=== PATIENT | male | born 1980 | race Caucasian/White ===

== ENCOUNTER 2017-05-10 17:22 | Inpatient (IN) ==
[2017-05-10] MEDS ORDERED: *HR* OxyCODONE/APAP 5/325 TABLET PO ONE (18:21)
--- NOTE | 2017-05-10 18:23 | Emergency Department Note ---
Disposition Clinical Impression: Thrombocytopenia, Anemia, Petechial hemorrhage, Lower extremity edema Disposition: Admitted As Inpatient Referrals: Ru Ye MD [Primary Care Provider] - Forms: ED Satisfaction Letter General Adult HPI - General Chief complaint: ED Extremity Problem,Nontraumatic Stated complaint: leg swelling Time Seen by Provider: 05/10/17 17:37 Source: patient Limitations: no limitations - History of Present Illness HPI Narrative: 37-year-old male reports emergency department with a two-week history of lower extremity swelling, worse on the right. He went to his primary care physician who recommended he come to the ED for an ultrasound. He describes right lower extremity swelling which is worse than the left. There is no history of trauma or fever he is not known to be diabetic. The patient has had leg and foot surgery in the past area he is not anticoagulated. There is no history of heart failure liver failure kidney failure severe anemia. There is no history of fever or direct injury no coldness blueness numbness or weakness of the lower extremities. There is no history of chest pain or acute shortness of breath. The patient has some lower back pain hurts in general with movement. There is no history of acute bowel or bladder dysfunction or weakness or numbness in legs. He has no history of back surgery. Definitively no abdominal pain. No history of aneurysms or previous DVT PE or cancer. Pain Scale: 7 - Related Data Home Medications Medication Instructions Recorded Confirmed Carvedilol [Coreg] 6.25 mg PO BID 05/10/17 05/10/17 FLUoxetine HCl [PROzac] 20 mg PO DAILY 05/10/17 05/10/17 Allergies Allergy/AdvReac Type Severity Reaction Status Date / Time No Known Allergies Allergy Verified 01/16/17 12:06 All systems ED: reviewed and negative except as stated. Past Medical History - Past Medical History Medical history: Reports: hypertension Psychiatric history: Reports: bipolar, depression, prior suicide attempt, previous psychiatric hospitalization - Social History Smoking Status: Current every day smoker Smokeless Tobacco Status: No Alcohol use: Reports: heavy Drug use: Reports: cocaine Physical Exam - General Limitations: no limitations General appearance: alert, in no apparent distress - Head Head exam: atraumatic, normocephalic, normal inspection - Eye Eye exam: Present: normal appearance, PERRL, EOMI - ENT ENT exam: normal exam, normal oropharynx, mucous membranes moist, TM's normal bilaterally, normal external ear exam - Neck Neck exam: Present: normal inspection, full ROM, trachea midline - Chest Chest inspection: Present: symmetric chest wall rise. Absent: tenderness - Respiratory Respiratory exam: Present: normal lung sounds bilaterally. Absent: respiratory distress, wheezes - Cardiovascular Cardiovascular exam: Present: regular rate, normal rhythm, normal heart sounds - Abdominal Exam Abdominal exam: Present: soft, Non-Tender, normal bowel sounds. Absent: tenderness, distention, guarding, rebound, rigidity, Gimenez's sign, Rovsing's sign, tenderness at McBurney's Point, pulsatile mass - Extremities Exam Extremities exam: Present: normal capillary refill, calf tenderness, other ( Upper extremities warm and well-perfused 2 with no evidence of trauma. Lower extremities show edema, much worse on the right, chronic surgical or traumatic scarring left lower extremity and right lower extremity. No evidence of acute injury. Petechial hemorrhages bilateral lower extremities, right leg is somewhat more edematous than the left. No crepitance or bruising or weeping or scaling lesions no blistering or blackening of the skin on either leg. All 4 extremities are warm and well perfused without cyanosis or evidence of acute injury.) - Expanded Lower Extremity Exam Neurovascular/Tendon exam: Present: normal capillary refill. Absent: motor deficit, sensory deficit, tendon deficit, extremity cold to touch, pallor - Back Exam Back exam: Present: normal inspection, full ROM, paraspinal tenderness. Absent : tenderness, CVA tenderness (R), CVA tenderness (L), vertebral tenderness, straight leg raise (R), straight leg raise (L) - Neurological Exam Neurological exam: Present: alert, oriented X3, CN II-XII intact. Absent: motor sensory deficit - Psychiatric Psychiatric exam: Present: normal affect, normal mood - Skin Skin exam: Present: warm, dry, intact, normal color, erythema (Chief hemorrhages noted throughout the bilateral lower extremities). Absent: rash, cyanosis, diaphoresis, pallor, mottled Course Vital Signs Temperature 98.9 F 05/10/17 17:28 Pulse Rate 103 05/10/17 17:28 Respiratory Rate 18 05/10/17 17:28 Blood Pressure 165/99 05/10/17 17:28 O2 Sat by Pulse Oximetry 95 05/10/17 17:28 Temperature 98.6 F 05/10/17 20:03 Pulse Rate 86 05/10/17 20:03 Respiratory Rate 16 05/10/17 20:03 Blood Pressure 140/99 05/10/17 20:03 O2 Sat by Pulse Oximetry 0 05/10/17 20:03 Oxygen Delivery Oxygen Delivery Room Air Medical Decision Making - MDM Narrative Medical decision making narrative: Patient appears to have platelets less than 2000, critical level. He is currently stable, he does display petechial hemorrhages. He is somewhat anemic but does not describe bleeding. The patient has a history of alcohol abuse which may be contributory. Based on his markedly depressed platelet level, edema, and notable petechial hemorrhages, I thought it would be appropriate to admit the patient to the hospital. I reviewed the case with the hospitalist on- call who has accepted the patient to their care. - Lab Data Lab results reviewed: Yes I reviewed the patient's lab results. Result diagrams: 05/10/17 19:02 05/10/17 19:02 Lab Results 05/10/17 05/10/17 05/10/17 Range/Units 19:02 19:02 19:02 WBC 7.0 (4.3-11.1) K/mcL RBC 3.21 L (4.19-5.50) M/mcL Hgb 9.4 L (12.9-16.9) g/dL Hct 28.6 L (37.5-50.1) % MCV 89.1 (83.0-100.0) fL MCH 29.3 (28.0-33.3) pg MCHC 32.9 (31.6-35.5) g/dL RDW 14.4 (11.5-14.5) % Plt Count < 2 L* (140-400) K/mcL Immature Gran % 0.6 (0-4) % Seg Neutrophils % 68.7 % Lymphocytes % 20.1 % Monocytes % 7.0 % Eosinophils % 3.2 % Basophils % 0.4 % Neutrophils # 4.8 (1.6-8.9) K/mcL Lymphocytes # 1.4 (0.6-4.6) K/mcL Monocytes # 0.5 (0.0-1.3) K/mcL Eosinophils # 0.2 (0.0-0.6) K/mcL Basophils # 0.0 (0.0-0.2) K/mcL Nucleated RBCs/100 WBC 0.4 H (0) /100 WBC Immature Plt Fraction 8.8 H (1.1-6.1) % PT 10.6 (9.4-12.1) Seconds INR 1.0 D-Dimer 419 (0-500) ng/mLFEU Sodium 141 (136-145) mEq/L Potassium 3.8 (3.5-4.5) mEq/L Chloride 106 (98-109) mEq/L Carbon Dioxide 26 (19-29) mEq/L BUN 18 (8-26) mg/dL Creatinine 0.84 (0.72-1.25) mg/dL Est GFR ( Amer) > 60 (> 60) Est GFR (Non-Af Amer) > 60 (> 60) BUN/Creatinine Ratio 21 (6-26) Glucose 142 H (70-99) mg/dL Calculated Osmolality 296 (280-300) Lactic Acid (0.5-2.2) mmol/L Calcium 9.3 (8.6-10.8) mg/dL Total Bilirubin (0.2-1.2) mg/dL Direct Bilirubin (0.0-0.5) mg/dL Indirect Bilirubin (0.0-1.2) mg/dL AST (5-34) Units/L ALT (0-55) Units/L Alkaline Phosphatase (38-126) Units/L Creatine Kinase 180 (30-200) Units/L Troponin I (0-0.03) ng/mL C-Reactive Protein 6 H (Less than 5) mg/L B-Natriuretic Peptide (0-100) pg/mL Serum Total Protein (6.0-8.3) g/dL Albumin (3.5-5.0) g/dL Globulin (2.4-3.5) g/dL Albumin/Globulin Ratio (1.1-2.2) 05/10/17 05/10/17 05/10/17 Range/Units 19:02 19:02 19:02 WBC (4.3-11.1) K/mcL RBC (4.19-5.50) M/mcL Hgb (12.9-16.9) g/dL Hct (37.5-50.1) % MCV (83.0-100.0) fL MCH (28.0-33.3) pg MCHC (31.6-35.5) g/dL RDW (11.5-14.5) % Plt Count (140-400) K/mcL Immature Gran % (0-4) % Seg Neutrophils % % Lymphocytes % % Monocytes % % Eosinophils % % Basophils % % Neutrophils # (1.6-8.9) K/mcL Lymphocytes # (0.6-4.6) K/mcL Monocytes # (0.0-1.3) K/mcL Eosinophils # (0.0-0.6) K/mcL Basophils # (0.0-0.2) K/mcL Nucleated RBCs/100 WBC (0) /100 WBC Immature Plt Fraction (1.1-6.1) % PT (9.4-12.1) Seconds INR D-Dimer (0-500) ng/mLFEU Sodium (136-145) mEq/L Potassium (3.5-4.5) mEq/L Chloride (98-109) mEq/L Carbon Dioxide (19-29) mEq/L BUN (8-26) mg/dL Creatinine (0.72-1.25) mg/dL Est GFR ( Amer) (> 60) Est GFR (Non-Af Amer) (> 60) BUN/Creatinine Ratio (6-26) Glucose (70-99) mg/dL Calculated Osmolality (280-300) Lactic Acid 1.1 (0.5-2.2) mmol/L Calcium (8.6-10.8) mg/dL Total Bilirubin (0.2-1.2) mg/dL Direct Bilirubin (0.0-0.5) mg/dL Indirect Bilirubin (0.0-1.2) mg/dL AST (5-34) Units/L ALT (0-55) Units/L Alkaline Phosphatase (38-126) Units/L Creatine Kinase (30-200) Units/L Troponin I 0.01 (0-0.03) ng/mL C-Reactive Protein (Less than 5) mg/L B-Natriuretic Peptide 42 (0-100) pg/mL Serum Total Protein (6.0-8.3) g/dL Albumin (3.5-5.0) g/dL Globulin (2.4-3.5) g/dL Albumin/Globulin Ratio (1.1-2.2) // Range/Units 19:02 WBC (4.3-11.1) K/mcL RBC (4.19-5.50) M/mcL Hgb (12.9-16.9) g/dL Hct (37.5-50.1) % MCV (83.0-100.0) fL MCH (28.0-33.3) pg MCHC (31.6-35.5) g/dL RDW (11.5-14.5) % Plt Count (140-400) K/mcL Immature Gran % (0-4) % Seg Neutrophils % % Lymphocytes % % Monocytes % % Eosinophils % % Basophils % % Neutrophils # (1.6-8.9) K/mcL Lymphocytes # (0.6-4.6) K/mcL Monocytes # (0.0-1.3) K/mcL Eosinophils # (0.0-0.6) K/mcL Basophils # (0.0-0.2) K/mcL Nucleated RBCs/100 WBC (0) /100 WBC Immature Plt Fraction (1.1-6.1) % PT (9.4-12.1) Seconds INR D-Dimer (0-500) ng/mLFEU Sodium (136-145) mEq/L Potassium (3.5-4.5) mEq/L Chloride (98-109) mEq/L Carbon Dioxide (19-29) mEq/L BUN (8-26) mg/dL Creatinine (0.72-1.25) mg/dL Est GFR ( Amer) (> 60) Est GFR (Non-Af Amer) (> 60) BUN/Creatinine Ratio (6-26) Glucose (70-99) mg/dL Calculated Osmolality (280-300) Lactic Acid (0.5-2.2) mmol/L Calcium (8.6-10.8) mg/dL Total Bilirubin 0.8 (0.2-1.2) mg/dL Direct Bilirubin 0.3 (0.0-0.5) mg/dL Indirect Bilirubin 0.5 (0.0-1.2) mg/dL AST 18 (5-34) Units/L ALT 23 (0-55) Units/L Alkaline Phosphatase 102 (38-126) Units/L Creatine Kinase (30-200) Units/L Troponin I (0-0.03) ng/mL C-Reactive Protein (Less than 5) mg/L B-Natriuretic Peptide (0-100) pg/mL Serum Total Protein 6.7 (6.0-8.3) g/dL Albumin 3.5 (3.5-5.0) g/dL Globulin 3.2 (2.4-3.5) g/dL Albumin/Globulin Ratio 1.1 (1.1-2.2) - Radiology Data Radiology results reviewed: Yes I reviewed the patient's radiology results.
[2017-05-10 19:13] LABS: Basophils % 0.4 %
[2017-05-10 19:14] LABS: Eosinophils # 0.2 K/mcL (0.0-0.6); Eosinophils % 3.2 %; Hematocrit 28.6 % (37.5-50.1); Hemoglobin 9.4 g/dL (12.9-16.9); Immature Granulocytes % 0.6 % (0-4); Immature Platelets 8.8 % (1.1-6.1); Lymphocytes # 1.4 K/mcL (0.6-4.6); Lymphocytes % 20.1 %; Mean Corpuscular HGB Conc 32.9 g/dL (31.6-35.5); Mean Corpuscular Hemoglobin 29.3 pg (28.0-33.3); Mean Corpuscular Volume 89.1 fL (83.0-100.0); Monocytes # 0.5 K/mcL (0.0-1.3); Neutrophils # 4.8 K/mcL (1.6-8.9); Nucleated Red Blood Cells 0.4 /100 WBC (0); Red Blood Count 3.21 M/mcL (4.19-5.50); Red Cell Distribution Width 14.4 % (11.5-14.5); Segmented Neutrophils % 68.7 %
[2017-05-10 19:23] LABS: Prothrombin Time 10.6 Seconds (9.4-12.1)
[2017-05-10 19:26] LABS: Albumin 3.5 g/dL (3.5-5.0); Albumin/Globulin Ratio 1.1 (1.1-2.2); Bilirubin,Direct 0.3 mg/dL (0.0-0.5); Bilirubin,Indirect 0.5 mg/dL (0.0-1.2); Bilirubin,Total 0.8 mg/dL (0.2-1.2); Globulin 3.2 g/dL (2.4-3.5); Total Protein 6.7 g/dL (6.0-8.3)
[2017-05-10 19:27] LABS: BUN/Creatinine Ratio 21 (6-26); Blood Urea Nitrogen 18 mg/dL (8-26); Calcium 9.3 mg/dL (8.6-10.8); Carbon Dioxide 26 mEq/L (19-29); Chloride 106 mEq/L (98-109); Creatine Kinase 180 Units/L (30-200); Glucose 142 mg/dL (70-99); Osmolality,Calculated 296 (280-300); Potassium 3.8 mEq/L (3.5-4.5); Sodium 141 mEq/L (136-145); eGFR For African Americans > 60 (> 60); eGFR For Non-African Americans > 60 (> 60)
[2017-05-10 19:28] LABS: Platelet Count < 2 K/mcL (140-400)
[2017-05-10 19:56] LABS: C-Reactive Protein 6 mg/L (Less than 5)
[2017-05-10] MEDS ORDERED: Acetaminophen 325 MG TABLET PO PRN (21:41)
[2017-05-10] MEDS ORDERED: Ondansetron 4 MG/2 ML VIAL IVP PRN (21:41)
[2017-05-10] MEDS ORDERED: Naloxone 0.4 MG/ML INJ IVP PRN (21:41)
--- NOTE | 2017-05-10 22:09 | Internal Med History&Physical ---
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 Yao, he recommends to start Solu- Medrol. Platelet transfusion with 6 units single donor PLTs has been ordered, however patient is o negative and awaiting availability of O+ve or O neg blood He is at risk of spontaneous with a platelet count of 2000. Continue to monitor closely High risk patient due to acute finding and riusk of aretrial/venous thrombosis and bleed SCDs for DVT prophylaxis (2) Severe thrombocytopenia Current visit: Yes Status: Acute As above (3) Petechial hemorrhage Current visit: Yes Status: Acute As above (4) Anemia Current visit: Yes Status: Acute Acute HB 9.4, baseline was 16.4 in 12/2016 No current source of bleeding LFT is Normal Iron, Vit B12/Folate panel is normal LDH is normal No evidence of hemolysis in blood or urine Hematology evaluation has been requested Qualifiers: Anemia type: unspecified type Qualified Code(s): D64.9 - Anemia, unspecified (5) Hypertension Current visit: Yes Status: Chronic Controlled, continue home meds Qualifiers: Hypertension type: essential hypertension Qualified Code(s): I10 - Essential (primary) hypertension Internal Medicine - H&P: HPI Chief complaint: leg swelling, skin rash Admitted From: Home Plans for Post Hospital Care: Home History of present illness: Mr. Andre is a 37 year old male with PMH of cocaine abuse, hypertension and tobacco abuse. Patient with 2 weeks history of right lower extremity swelling, and red spots on his extremities He denies a history of abdominal pain, diarrhea, change in bowel habits, no neurologic symptoms, no headaches, he has no jaundice. He denies IV drug use, denies recent travel He did not have any childhood CA or malignancy HE was found in the ER with an incidental PLT count of 2,000 He reports his leg swelling on the R has been getting progressively worse and his LLE is also beginning to be swollen He denies chest pain, SOB, orthopnea, blurry vision. he has no fever or chills He denies any use of new drugs Physical exam in the ER reveals diffuse petechiae, lower extremities and trunk , no oral mucosa bleeding, . HB found to be 9, PLT count 2. Renal and liver function is normal LDH is normal hiv and Hep C screening sent is negative Peripheral smear is pending Abd CT shows Mild splenomegaly with extensive splenic remote healed granulomatous disease. There are scattered mediastinal and abdominal subcentimeter lymph nodes with no significant enlarged findings to suggest lymphadenopathy. A lymphoproliferative disorder cannot be excluded. Past Med Surg Social Fam HX - Past Medical History Medical history: hypertension Psychiatric history: bipolar, depression, prior suicide attempt, previous psychiatric hospitalization - Social History Smoking Status: Current every day smoker Smokeless Tobacco Status: No Alcohol use: heavy Drug use: cocaine - Family History Mother Family Member Ethnicity: Non- Living Status: Still Living Hx Family Cardiac Disorders: Yes (stents) Father Family Member Ethnicity: Non- Living Status: Still Living Hx Family Cardiac Disorders: Yes (stents placed) Internal Medicine - H&P: Meds Carvedilol [Coreg] 6.25 mg PO BID 05/10/17 [History] FLUoxetine HCl [PROzac] 20 mg PO DAILY 05/10/17 [History] 3 Allergy/AdvReac Type Severity Reaction Status Date / Time No Known Allergies Allergy Verified 01/16/17 12:06 All Systems PM: A 10-system review of systems was performed and is negative for pertinent findings except as documented above in the HPI. - Constitutional Constitutional: as per HPI - EENT Eyes: as per HPI Ears: as per HPI Nose, mouth and throat: as per HPI - Cardiovascular Cardiovascular ROS IM: as per HPI - Respiratory Respiratory: as per HPI - Gastrointestinal Gastrointestinal: as per HPI - Musculoskeletal Musculoskeletal ROS IM: as per HPI - Integumentary Integumentary IM: as per HPI - Neurological Neurological ROS: as per HPI - Hematologic/Lymphatic Hematologic/Lymphatic: as per HPI - Constitutional Vitals: Temp Pulse Resp BP Pulse Ox 98.6 F 81 16 133/88 99 05/10/17 20:03 05/10/17 22:07 05/10/17 22:07 05/10/17 22:07 05/10/17 22:07 VSS Gen: NAD HEENT: Moist oral mucosa, no cyanosis, no petechiae Neuro: Awake, alert, oriented X3, no speech deficits, no facial paralysis, no gross neurologic deficits Chest: No chest wall tenderness, chest is CTAB Heart: S1, S2 only, loud systolic murmur-MR. Abdomen: Soft, not tender, no distension Extremities: Well perfused, RLE swollen with calf tenderness. LLE also swollen. Chronic scarring from prior trauma noted, LE are well perfused. Pulses are present Skin: Petechiae. Internal Med - H&P Results - Labs CBC & Chem 7: 05/10/17 19:02 05/10/17 19:02
[2017-05-10 23:14] LABS: % Iron Saturation 21 % (20-55); Iron 71 mcg/dL (65-175); Transferrin 236 mg/dL (174-364)
[2017-05-10 23:37] LABS: Ferritin 255 ng/ml (22-275); HIV-1&2 Antibody & p24 Ag Nonreactive (Nonreactive); Hepatitis C Virus Antibody Nonreactive (Nonreactive)
[2017-05-10 23:49] LABS: Folate 7.5 ng/mL (7.0-31.4)
--- NOTE | 2017-05-11 00:14 | Event Note ---
Date of Encounter: 05/11/17 Time of Encounter: 00:13 Patient is O negative and blood bank has no O negative PLTS. Ensure transfusion of O negative Available blood is A positive, defer PLT transfusion till O blood is available
[2017-05-11] MEDS: MethylPREDNISolone 40 MG/ML VIAL IVP SCH ×3 (00:36→16:34)
[2017-05-11] MEDS: *HR* HYDROcodone/Acet 5/325 mg TABLET PO PRN ×3 (00:36→21:46)
[2017-05-11 06:00] LABS: Immature Granulocytes % 0.9 % (0-4); Lymphocytes % 10.7 %; Mean Corpuscular Volume 87.5 fL (83.0-100.0); Red Cell Distribution Width 14.2 % (11.5-14.5)
[2017-05-11 06:02] LABS: Basophils % 0.4 %; Eosinophils # 0.1 K/mcL (0.0-0.6); Eosinophils % 0.9 %; Hematocrit 28.8 % (37.5-50.1); Hemoglobin 9.7 g/dL (12.9-16.9); Immature Platelets 9.8 % (1.1-6.1); Lymphocytes # 0.7 K/mcL (0.6-4.6); Mean Corpuscular HGB Conc 33.7 g/dL (31.6-35.5); Mean Corpuscular Hemoglobin 29.5 pg (28.0-33.3); Monocytes # 0.2 K/mcL (0.0-1.3); Monocytes % 2.5 %; Neutrophils # 5.8 K/mcL (1.6-8.9); Nucleated Red Blood Cells 0.6 /100 WBC (0); Red Blood Count 3.29 M/mcL (4.19-5.50); Segmented Neutrophils % 84.6 %
[2017-05-11 06:11] LABS: Platelet Count < 2 K/mcL (140-400)
[2017-05-11 06:12] LABS: BUN/Creatinine Ratio 20 (6-26); Blood Urea Nitrogen 18 mg/dL (8-26); Carbon Dioxide 25 mEq/L (19-29); Chloride 105 mEq/L (98-109); Glucose 209 mg/dL (70-99); Osmolality,Calculated 294 (280-300); Sodium 138 mEq/L (136-145); eGFR For African Americans > 60 (> 60); eGFR For Non-African Americans > 60 (> 60)
[2017-05-11 06:42] LABS: Platelet Estimate Marked Decrease (Normal)
[2017-05-11] MEDS: FLUoxetine 20 MG CAPSULE PO SCH (08:06)
--- NOTE | 2017-05-11 10:40 | Internal Med Progress Note ---
Date of Encounter: 05/11/17 Time of Encounter: 10:36 - Assessment and plan (1) Severe thrombocytopenia Current Visit: Yes Status: Acute Assessment and plan: Patient noted to have acute onset of severe thrombocytopenia with platelet count less than 2000 with normal platelet count at the end of December 2016. No recent infections/drugs. Hematology on board. Continue platelet transfusion to maintain platelet counts about 20,000. 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 Continue IV steroids. Monitor closely for signs of bleeding. Avoid medical anticoagulation. Follow-up peripheral smear, hepatitis profile, platelet associated antibody, CA- 19-9. To follow up with hematology as outpatient. Also noted to have associated normocytic anemia; iron profile, serum vitamin B12 and folate levels, LDH noted to be within normal limits. Reticulocyte count mildly elevated. (2) Lower extremity edema Current Visit: Yes Status: Acute Assessment and plan: D-dimer within normal limits. Bilateral lower extremity venous Doppler ultrasound negative for DVT. Noted to have good palpable pulses in bilateral lower extremities. Edema likely related to thrombocytopenia and purpuric rash. (3) Tobacco abuse Current Visit: Yes Status: Chronic Assessment and plan: Continue nicotine transdermal patch. (4) Bipolar disorder Current Visit: Yes Status: Chronic Qualifiers: Active/Remission status: remission status unspecified Qualified Code(s): F31.9 - Bipolar disorder, unspecified - Subjective Interval history: Reports right leg pain and swelling; left leg swelling improving; denies fever/ chills, recent respiratory infections, new medications or drug use; has been an alcoholic in the past but quit since February 2017; - Constitutional Vitals: Temp Pulse Resp BP Pulse Ox 97.7 F 98 17 148/95 93 05/11/17 07:04 05/11/17 07:04 05/11/17 07:04 05/11/17 07:04 05/11/17 07:04 General appearance: Present: A&O X 3, obese, answers questions appropriately - Respiratory Respiratory exam: Present: CTAB. Absent: accessory muscle use, rales, rhonchi, wheezes - Cardiovascular Cardiovascular exam: Present: RRR, +S1, +S2. Absent: diastolic murmur, gallop, rubs, systolic murmur - GI/Abdominal GI/Abdominal exam: Present: normal bowel sounds, soft, no peritoneal signs. Absent: distended, tenderness - Extremities Exam Extremities exam: Present: full ROM, pedal edema (B/L edema and warmth, right> left), tenderness (significant tenderness to light palpation over right calf and leg), warm, radial pulses palpable and symmetrical. Absent: calf tenderness , cyanotic - Skin Skin exam: Present: dry, intact, petechiae (purpuric rash over B/L LE and UE) Internal Medicine: Result - Labs CBC & Chem 7: 05/13/17 03:16 05/11/17 05:31 Labs: Short CBC 05/11/17 Range/Units 05:31 WBC 6.8 (4.3-11.1) K/mcL Hgb 9.7 L (12.9-16.9) g/dL Hct 28.8 L (37.5-50.1) % Plt Count < 2 L* (140-400) K/mcL Neutrophils # 5.8 (1.6-8.9) K/mcL BMP 05/11/17 05:31 Sodium 138 Potassium 4.0 Chloride 105 Carbon Dioxide 25 BUN 18 Creatinine 0.89 Glucose 209 H Calcium 9.0 - ABG Interpretation ABG results: PT/INR, D-dimer PT 10.6 Seconds (9.4-12.1) 05/10/17 19:02 D-Dimer 419 ng/mLFEU (0-500) 05/10/17 19:02 - Impressions Impressions Abdomen CT 05/10/17 21:43 IMPRESSION: 1. Mild bilateral patchy lung base opacities which could represent scarring versus possible atelectasis or nonspecific infectious/inflammatory process. No lobar pneumonia. 2. Mild splenomegaly with extensive splenic remote healed granulomatous disease. There are scattered mediastinal and abdominal subcentimeter lymph nodes with no significant enlarged findings to suggest lymphadenopathy. A lymphoproliferative disorder cannot be excluded. 3. Subtle findings suggesting anemia correspond with laboratory values. 4. Indeterminate pancreatic head 2 cm hypodense focus. For an uncharacterized cystic mass between 2-3 cm in an asymptomatic patient yearly follow-up evaluation with CT abdomen could be obtained. White Paper: Managing Incidental Findings on Abdominal CT, SALLY, May 2011 D/ / 05/10/2017 23:17:48 Raheel Mcbride MD / [facility] Interpreting Provider: Raheel Mcbride MD Chest CT 05/10/17 21:44 IMPRESSION: 1. Mild bilateral patchy lung base opacities which could represent scarring versus possible atelectasis or nonspecific infectious/inflammatory process. No lobar pneumonia. 2. Mild splenomegaly with extensive splenic remote healed granulomatous disease. There are scattered mediastinal and abdominal subcentimeter lymph nodes with no significant enlarged findings to suggest lymphadenopathy. A lymphoproliferative disorder cannot be excluded. 3. Subtle findings suggesting anemia correspond with laboratory values. 4. Indeterminate pancreatic head 2 cm hypodense focus. For an uncharacterized cystic mass between 2-3 cm in an asymptomatic patient yearly follow-up evaluation with CT abdomen could be obtained. White Paper: Managing Incidental Findings on Abdominal CT, JACR, May 2011 D/ / 05/10/2017 23:17:48 [facility] Interpreting Provider: Raheel Mcbride MD Consult Discharge Plan - Plan Instructions: Hydrocodone/Acetaminophen (By mouth), How to Stop Smoking (DC), Thrombocytopenic Purpura (DC), Chronic Hypertension (DC), Thrombocytopenia (DC) Additional Instructions: F/up with [facility] in 1 week Referrals: Ru Ye MD [Primary Care Provider] - (Please call the office on Monday to schedule a follow up visit for within 1 week. ) Prescriptions: HYDROcodone/Acet 5/325 mg [[place] 5-325 mg] 1 tab PO Q6H PRN #20 tablet PRN Reason: Pain Omeprazole 20 mg PO DAILY #30 tablet. predniSONE [PredniSONE] 80 mg PO DAILY 5 Days tablet
[2017-05-11] MEDS ORDERED: 0.9 % Sodium Chloride 250 ML ONE (12:06)
--- NOTE | 2017-05-11 12:13 | Oncology Inp Consult Note ---
Date of Encounter: 05/11/17 Time of Encounter: 12:11 Assessment and Plan (1) Pancreatic mass Status: Acute Assessment and plan: This is incidental finding 1.2 x 2 cm dense mass head of pancreas ,could be a cystic lesion. Would proceed with a malaise lipase and CA-19-9. We continued surveillance for that (2) Thrombocytopenia Status: Acute Assessment and plan: Presented with acute thrombocytopenia. Also anemia. ITP high on the differential. Continue steroids. Trachea transfusion to keep the platelet count above 20,000 We will proceed with peripheral blood flow cytometry to rule out lymphoproliferative disorder. Cause of anemia and not completely clear. No clinical evidence of bleeding. If necessary proceed with bone marrow biopsy Check for platelet antibodies and Kelly test Right lower extremity mild erythema with 1+ edema. Venous Doppler negative for DVT. He has good peripheral pulses both lower extremities. - Data of Consult Requesting Physician: Leena Mejia MD Primary Care Provider: Ru Ye MD - Consult Narrative Reason for consult: Acute thrombocytopenia likely ITP History of present illness: Mr. Andre is a 37 year old male admitted with 2 week history of right lower extremity swelling. Workup in the emergency room showed low platelet count of 2000 and anemia hemoglobin 9.7 normocytic normochromic. His CBC was unremarkable in January 04 with normal hemoglobin around 14 and platelets around 200 ,000. His neutrophil counts remains normal He has a remote history of cocaine abuse Workup negative for hepatitis C and HIV on 05/10/2017. LDH normal No fever chills. Venous Doppler negative for DVT right lower extremity. Started on Solu-Medrol 40 mg IV every 8 hours He is O- and blood bank does not have O- platelets available. He does have petechial-type rash. On admission 05/10/2017 PT normal at 10.6 mL normal at 419. Less likely to have a clotting process going on Anemia workup negative with a normal ferritin at 55 and saturation normal at 21% B12 457 and folate 7.5 with normal T chest abdomen and pelvis without contrast 01/07/2017 showed spleen size craniocaudal 14.2 cm still below costal margin. Extensive granulomatous disease in the spleen Liver unremarkable Subcentimeter lymph nodes in the retroperitoneal and mediastinum which is nonspecific 1.2 x 2 x 1.2 S in the pancreatic head without any pancreatic inflammation Past medical history History of cocaine abuse 2 months ago History of alcohol abuse in the past and he was on Vivitrol Past Med Surg Social Fam HX - Past Medical History Medical history: hypertension Psychiatric history: bipolar, depression, prior suicide attempt, previous psychiatric hospitalization - Social History Smoking Status: Current every day smoker Smokeless Tobacco Status: No Alcohol use: heavy Drug use: cocaine - Family History Mother Family Member Ethnicity: Non- Living Status: Still Living Hx Family Cardiac Disorders: Yes (stents) Father Family Member Ethnicity: Non- Living Status: Still Living Hx Family Cardiac Disorders: Yes (stents placed) Medications and Allergies Carvedilol [Coreg] 6.25 mg PO BID 05/10/17 [History] FLUoxetine HCl [PROzac] 20 mg PO DAILY 05/10/17 [History] 3 Allergy/AdvReac Type Severity Reaction Status Date / Time No Known Allergies Allergy Verified 01/16/17 12:06 Review of systems: No fever chills. Clinically no evidence of sepsis. No clinical evidence of bleeding. No chest pain or shortness of breath Oncology - Exam - Constitutional Vitals: Temp Pulse Resp BP Pulse Ox 98.2 F 92 18 155/94 93 05/11/17 10:52 05/11/17 10:52 05/11/17 10:52 05/11/17 10:52 05/11/17 10:52 Exam: GENERAL: Alert and oriented, well appearing. Mental Status: Affect appropriate for circumstances HEENT: Sclerae anicteric. No mucositis or thrush. No other oral or pharyngeal lesions or erythema. Skin: No rashes or petechiae. No evidence of skin malignancy Lymph nodes: No cervical, supraclavicular, axillary, or inguinal adenopathy. Lungs: Air entry normal with normal breath sounds. No rhonchi or wheezing Cardiovascular: Regular rate and rhythm. No skipped beats Abdomen: Soft, nontender; no organomegaly or masses palpable. Extremities: Right lower extremity tenderness with mild erythema.. Left side trace edema. He has a scar in the mid phillips left leg with what looks like a sebaceous horn. He is very sensitive to touch on that spot Neurologic: Alert, cranial nerves II-XII intact; normal gait; no focal weakness or sensory abnormalities Oncology - Results Labs: Short CBC 05/11/17 Range/Units 05:31 WBC 6.8 (4.3-11.1) K/mcL Hgb 9.7 L (12.9-16.9) g/dL Hct 28.8 L (37.5-50.1) % Plt Count < 2 L* (140-400) K/mcL Neutrophils # 5.8 (1.6-8.9) K/mcL BMP 05/11/17 05:31 Sodium 138 Potassium 4.0 Chloride 105 Carbon Dioxide 25 BUN 18 Creatinine 0.89 Glucose 209 H Calcium 9.0 Consult Discharge Plan - Plan Referrals: [facility],Ru Weiss MD [Primary Care Provider] -
[2017-05-11 13:00] LABS: Immature Reticulocyte % 21.7 % (11.0-38.0); Retculocyte # 0.22 M/mcL (0.05-0.10); Reticulocyte % 6.7 % (1.6-2.8)
--- NOTE | 2017-05-11 13:10 | Oncology Inp Consult Note ---
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 No family history of significant cancer , blood clots, or hematologic disorders. Patient with several week onset of increased lower extremity swelling and petechiae of arms and legs. He had increasing fatigue. History of cocaine use, last dose 2 months ago. He takes 1800mg ibuprofen per day since foot surgery 2 years ago. He is on fluoxetine for depression. I explained the natural history and etiology of acute versus chronic ITP, and gave the patient and his mother at the bedside educational materials. He has no viral or bacterial illness in the last several months. Likely autoimmune in most cases, but cannot rule out other causes due to substance use history. Treatment for PLT <2 is immediate transfusion of platelets. He is O negative, and it is OK to give O positive donor platelets to patient. He will continue steroids, and Dr Chaves will assess today to see if IVIG infusion is needed for inpatient care. He will need to see Dr Chaves as outpatient at [facility]. Dr Chaves note to follow for any changes in treatment plan. We will follow along. - Data of Consult Patient: new to practice Consult date: 05/11/17 Requesting Physician: Leena Mejia MD Primary Care Provider: Ru Ye MD - Consult Narrative History of present illness: Mr. Andre is a 37 year old male Past Med Surg Social Fam HX - Past Medical History Medical history: hypertension Psychiatric history: bipolar, depression, prior suicide attempt, previous psychiatric hospitalization - Social History Smoking Status: Current every day smoker Smokeless Tobacco Status: No Alcohol use: heavy Drug use: cocaine - Family History Mother Family Member Ethnicity: Non- Living Status: Still Living Hx Family Cardiac Disorders: Yes (stents) Father Family Member Ethnicity: Non- Living Status: Still Living Hx Family Cardiac Disorders: Yes (stents placed) Medications and Allergies Carvedilol [Coreg] 6.25 mg PO BID 05/10/17 [History] FLUoxetine HCl [PROzac] 20 mg PO DAILY 05/10/17 [History] 3 Allergy/AdvReac Type Severity Reaction Status Date / Time No Known Allergies Allergy Verified 01/16/17 12:06 Constitutional: Present: fatigue, malaise Musculoskeletal: Present: joint swelling (lower legs) Hematologic/Lymphatic: Present: easy bruising, other (petechiae on legs and arms ) Oncology - Exam - Constitutional Vitals: Temp Pulse Resp BP Pulse Ox 98.0 F 105 18 143/89 95 05/11/17 13:02 05/11/17 13:02 05/11/17 13:02 05/11/17 13:02 05/11/17 13:02 General appearance: cooperative, no acute distress - Head Head exam: Present: atraumatic, normal inspection - Eye Eye exam: Present: normal appearance, PERRL Pupils: Present: normal accommodation - ENT ENT exam: Present: mucous membranes moist - Neck Neck exam: Present: full ROM, normal inspection - Respiratory Respiratory exam: Present: CTAB - Cardiovascular Cardiovascular exam: Present: RRR, +S1, +S2 - GI/Abdominal GI/Abdominal exam: Present: normal bowel sounds - Extremities Exam Extremities exam: Present: full ROM, joint swelling (ankles), pedal edema - Neurological Exam Neurological exam: Present: alert, CN II-XII intact, oriented X3, no focal deficits - Psychiatric Psychiatric exam: Present: normal affect, normal mood - Skin Skin exam: Present: petechiae (legs and arms) Oncology - Results Labs: Short CBC 05/11/17 Range/Units 05:31 WBC 6.8 (4.3-11.1) K/mcL Hgb 9.7 L (12.9-16.9) g/dL Hct 28.8 L (37.5-50.1) % Plt Count < 2 L* (140-400) K/mcL Neutrophils # 5.8 (1.6-8.9) K/mcL BMP 05/11/17 05:31 Sodium 138 Potassium 4.0 Chloride 105 Carbon Dioxide 25 BUN 18 Creatinine 0.89 Glucose 209 H Calcium 9.0 Consult Discharge Plan - Plan Referrals: Ru Ye MD [Primary Care Provider] -
[2017-05-11 13:36] LABS: Thyroid Stimulating Hormone 0.299 mcIU/mL (0.350-4.840)
[2017-05-11] MEDS: Nicotine 21 MG PATCH.TD24 TD SCH (16:32)
[2017-05-11 19:43] LABS: Basophils % 0.2 %; Immature Granulocytes % 1.1 % (0-4); Mean Corpuscular Volume 84.6 fL (83.0-100.0); Monocytes % 3.8 %; Red Blood Count 3.19 M/mcL (4.19-5.50)
[2017-05-11 19:44] LABS: Hemoglobin 9.4 g/dL (12.9-16.9); Immature Platelets 32.7 % (1.1-6.1); Lymphocytes # 0.7 K/mcL (0.6-4.6); Mean Corpuscular HGB Conc 34.8 g/dL (31.6-35.5); Mean Corpuscular Hemoglobin 29.5 pg (28.0-33.3); Monocytes # 0.5 K/mcL (0.0-1.3); Neutrophils # 11.6 K/mcL (1.6-8.9); Nucleated Red Blood Cells 0.4 /100 WBC (0); Segmented Neutrophils % 89.9 %
[2017-05-11 19:52] LABS: Platelet Count 11 K/mcL (140-400)
[2017-05-11 20:15] LABS: Platelet Estimate Marked Decrease (Normal)
[2017-05-12] MEDS: MethylPREDNISolone 40 MG/ML VIAL IVP SCH ×4 (00:07→23:53)
[2017-05-12] MEDS: *HR* HYDROcodone/Acet 5/325 mg TABLET PO PRN ×2 (03:37→23:10)
[2017-05-12 05:03] LABS: Basophils % 0.2 %; Eosinophils % 0.1 %; Hemoglobin 10.3 g/dL (12.9-16.9); Mean Corpuscular Hemoglobin 29.7 pg (28.0-33.3); Red Blood Count 3.47 M/mcL (4.19-5.50)
[2017-05-12 05:05] LABS: Hematocrit 30.5 % (37.5-50.1); Immature Granulocytes % 1.1 % (0-4); Immature Platelets 27.6 % (1.1-6.1); Lymphocytes # 0.9 K/mcL (0.6-4.6); Mean Corpuscular HGB Conc 33.8 g/dL (31.6-35.5); Mean Corpuscular Volume 87.9 fL (83.0-100.0); Mean Platelet Volume 14.1 fL (9.4-12.4); Monocytes # 0.3 K/mcL (0.0-1.3); Neutrophils # 9.7 K/mcL (1.6-8.9); Nucleated Red Blood Cells 0.3 /100 WBC (0); Red Cell Distribution Width 14.4 % (11.5-14.5); Segmented Neutrophils % 87.6 %
[2017-05-12 05:10] LABS: Platelet Count 24 K/mcL (140-400)
[2017-05-12] MEDS: FLUoxetine 20 MG CAPSULE PO SCH (08:16)
[2017-05-12] MEDS: Nicotine 21 MG PATCH.TD24 TD SCH (08:17)
--- NOTE | 2017-05-12 11:21 | Venous Imaging Report ---
LE Venous Duplex Patient Name:Keith Andre Order Number:[id number] Procedure Date:05/10/2017 Date:1980Age:37 yrs Gender:Male Location:[facility] ED Room #: ER09 Ortho Rn:Naty Stephenson RDCS, RVT Referring MD:David Cárdenas MD Reading MD:Mat Cox MD Primary Indications:Swelling of limb Secondary Indications: Risk Factors Yes/No Hx of DVT Yes Impressions: Bilateral lower extremity: normal superficial and deep exam. Recommendations: Preliminary given to Dr Cárdenas in ED. Findings Venous Duplex Results: Right: Venous imaging of the lower extremity reveals full patency and normal vessel compressibility of the right distal iliac, right common femoral, right superficial femoral, right popliteal, right posterior tibial, right peroneal, right great saphenous and right lesser saphenous. Doppler signals in the evaluated veins were normal. Left: Venous imaging of the lower extremity reveals full patency and normal vessel compressibility of the left distal iliac, left common femoral, left superficial femoral, left popliteal, left posterior tibial, left peroneal, left great saphenous and left lesser saphenous. Doppler signals in the evaluated veins were normal. Prior Study: No prior study available for comparison. Lower Extremity Venous Duplex Side Vein Compress Spontaneous Flow Augment Diameter (cm) Depth (cm) Right Distal Iliac Normal Yes Phasic Yes Right Common Femoral Normal Yes Phasic Yes Right Superficial Femoral Normal Yes Phasic Yes Right Popliteal Normal Yes Phasic Yes Right Posterior Tibial Normal Yes Phasic Yes Right Peroneal Normal Yes Phasic Yes Right Great Saphenous Normal Yes Phasic Yes Right Lesser Saphenous Normal Yes Phasic Yes Left Distal Iliac Normal Yes Phasic Yes Left Common Femoral Normal Yes Phasic Yes Left Superficial Femoral Normal Yes Phasic Yes Left Popliteal Normal Yes Phasic Yes Left Posterior Tibial Normal Yes Phasic Yes Left Peroneal Normal Yes Phasic Yes Left Great Saphenous Normal Yes Phasic Yes Left Lesser Saphenous Normal Yes Phasic Yes Updated by Mat Cox MD on 05/12/2017 11:16:35 AM electronically signed on 05/12/2017 11:16:47 AM with status of Final
--- NOTE | 2017-05-12 18:32 | Internal Med Progress Note ---
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 Continue IV steroids. Platelet count is responding to steroids and platelet transfusion, noted to be 24,000 today. Continue to monitor CBC closely. No evidence of bleeding. No evidence of infection, blood cultures remain negative. Hematology on board. Peripheral smear shows markedly decreased platelet count. Hepatitis C antibody and HIV screen negative. (2) Severe thrombocytopenia Status: Acute Assessment and plan: Plan as above. Currently improving. No signs of bleeding. (3) Lower extremity edema Status: Acute Assessment and plan: D-dimer within normal limits. Bilateral lower extremity venous Doppler ultrasound negative for DVT. Noted to have good palpable pulses in bilateral lower extremities. Edema likely related to thrombocytopenia and purpuric rash. (4) Tobacco abuse Status: Chronic Assessment and plan: Continue nicotine transdermal patch. (5) Bipolar disorder Status: Chronic Qualifiers: Active/Remission status: remission status unspecified Qualified Code(s): F31.9 - Bipolar disorder, unspecified - Subjective Interval history: Reports improving right leg pain and swelling. No fever, chills, cough, dyspnea or chest pain. Received platelets. - Constitutional Vitals: Temp Pulse Resp BP Pulse Ox 98.3 F 103 17 139/90 93 05/12/17 15:03 05/12/17 15:03 05/12/17 15:03 05/12/17 15:03 05/12/17 15:03 General appearance: Present: A&O X 3, obese, answers questions appropriately - Respiratory Respiratory exam: Present: CTAB. Absent: accessory muscle use, rales, rhonchi, wheezes - Cardiovascular Cardiovascular exam: Present: RRR, +S1, +S2. Absent: diastolic murmur, gallop, rubs, systolic murmur - Extremities Exam Extremities exam: Present: pedal edema, warm, radial pulses palpable and symmetrical. Absent: calf tenderness, cyanotic Internal Medicine: Result - Labs CBC & Chem 7: 05/13/17 03:16 05/11/17 05:31 Labs: Short CBC 05/11/17 05/12/17 Range/Units 19:29 04:20 WBC 12.9 H D 11.1 (4.3-11.1) K/mcL Hgb 9.4 L 10.3 L (12.9-16.9) g/dL Hct 27.0 L 30.5 L (37.5-50.1) % Plt Count 11 L* D 24 L* D (140-400) K/mcL Neutrophils # 11.6 H 9.7 H (1.6-8.9) K/mcL - ABG Interpretation ABG results: PT/INR, D-dimer PT 10.6 Seconds (9.4-12.1) 05/10/17 19:02 D-Dimer 419 ng/mLFEU (0-500) 05/10/17 19:02 - VTE Documentation of Mechanical Device: Intermittent pneumatic compression device Consult Discharge Plan - Plan Instructions: Hydrocodone/Acetaminophen (By mouth), How to Stop Smoking (DC), Thrombocytopenic Purpura (DC), Chronic Hypertension (DC), Thrombocytopenia (DC) Additional Instructions: F/up with [facility] in 1 week Referrals: Carol Chaves MD [Partnered Physician] - [facility] [place] [facility] [Primary Care Provider] - (Please call the office on Monday to schedule a follow up visit for within 1 week. ) Prescriptions: HYDROcodone/Acet 5/325 mg [[place] 5-325 mg] 1 tab PO Q6H PRN #20 tablet PRN Reason: Pain Omeprazole 20 mg PO DAILY #30 tablet. predniSONE [PredniSONE] 80 mg PO DAILY 5 Days tablet
--- NOTE | 2017-05-12 19:21 | Oncology Inp Progress Note ---
Date of Encounter: 05/15/17 Time of Encounter: 19:19 (1) Pancreatic mass Status: Acute Assessment and plan: This is incidental finding 1.2 x 2 cm dense mass head of pancreas ,could be a cystic lesion. Would proceed with a malaise lipase and CA-19-9. We continued surveillance for that (2) Thrombocytopenia Status: Acute Assessment and plan: Presented with acute thrombocytopenia. Also anemia. ITP high on the differential. Continue steroids. With platelet transfusion counts improved to 24,000 We will proceed with peripheral blood flow cytometry to rule out lymphoproliferative disorder. Cause of anemia and not completely clear. Hemoglobin slightly improved to 10.3 If necessary proceed with bone marrow biopsy Check for platelet antibodies . Kelly test negative. TSH mildly suppressed at 0.3 Right lower extremity mild erythema with 1+ edema. Venous Doppler negative for DVT. He has good peripheral pulses both lower extremities. Oncology: Subj Interval history: Clinically feeling better. No bleeding episodes - Constitutional Vitals: Vital Signs Temp Pulse Resp BP Pulse Ox 05/12/17 19:13 98.9 F 104 18 138/85 96 05/12/17 15:03 98.3 F 103 17 139/90 93 05/12/17 11:12 98.3 F 98 18 136/84 96 05/12/17 07:59 98.3 F 110 17 146/99 94 05/12/17 03:17 98.2 F 108 20 153/101 94 05/11/17 23:15 97.9 F 105 18 129/80 95 Intake and Output 05/12/17 05/12/17 05/12/17 07:59 15:59 23:59 Intake Total 720 / 720 Output Total 2099 / 2099 Balance -2100 / -2099 720 / 720 Intake: Oral 720 / 720 Output: Urine 2099 / 2099 Other: Meal Lunch Percent of Meal Consumed 100% Weight 115.666 kg Patient Weight 05/12/17 23:59 Weight 115.666 kg Exam: GENERAL: Alert and oriented, well appearing. Mental Status: Affect appropriate for circumstances HEENT: Sclerae anicteric. No mucositis or thrush. No other oral or pharyngeal lesions or erythema. Skin: No rashes or petechiae. No evidence of skin malignancy Lymph nodes: No cervical, supraclavicular, axillary, or inguinal adenopathy. Lungs: Air entry normal with normal breath sounds. No rhonchi or wheezing Cardiovascular: Regular rate and rhythm. No skipped beats Abdomen: Soft, nontender; no organomegaly or masses palpable. Extremities: Erythema and right lower extremity edema has improved. Peripheral pulses are good Mild petechial rash Neurologic: Alert, cranial nerves II-XII intact; normal gait; no focal weakness or sensory abnormalities Oncology: Obj Data - Labs CBC & Chem 7: 05/13/17 03:16 05/11/17 05:31 Labs: Laboratory Results - last 24 hr 05/11/17 05/12/17 19:29 04:20 WBC 12.9 H D 11.1 RBC 3.19 L 3.47 L Hgb 9.4 L 10.3 L Hct 27.0 L 30.5 L MCV 84.6 87.9 MCH 29.5 29.7 MCHC 34.8 33.8 RDW 14.0 14.4 Plt Count 11 L* D 24 L* D MPV TNP 14.1 H Immature Gran % 1.1 1.1 Seg Neutrophils % 89.9 87.6 Lymphocytes % 5.0 8.0 Monocytes % 3.8 3.0 Eosinophils % 0.0 0.1 Basophils % 0.2 0.2 Neutrophils # 11.6 H 9.7 H Lymphocytes # 0.7 0.9 Monocytes # 0.5 0.3 Eosinophils # 0.0 0.0 Basophils # 0.0 0.0 Nucleated RBCs/100 WBC 0.4 H 0.3 H Platelet Estimate Marked Decrease L Immature Plt Fraction 32.7 H 27.6 H - ABG Interpretation ABG results: PT/INR, D-dimer PT 10.6 Seconds (9.4-12.1) 05/10/17 19:02 D-Dimer 419 ng/mLFEU (0-500) 05/10/17 19:02 Consult Discharge Plan - Plan Instructions: Hydrocodone/Acetaminophen (By mouth), How to Stop Smoking (DC), Thrombocytopenic Purpura (DC), Chronic Hypertension (DC), Thrombocytopenia (DC) Additional Instructions: F/up with [facility] in 1 week Referrals: Carol Chaves MD [Partnered Physician] - [facility] [place],Ru Weiss MD [Primary Care Provider] - (Please call the office on Monday to schedule a follow up visit for within 1 week. ) Prescriptions: HYDROcodone/Acet 5/325 mg [[place] 5-325 mg] 1 tab PO Q6H PRN #20 tablet PRN Reason: Pain Omeprazole 20 mg PO DAILY #30 tablet. predniSONE [PredniSONE] 80 mg PO DAILY 5 Days tablet
[2017-05-13 03:55] LABS: Basophils % 0.1 %; Monocytes % 3.9 %
[2017-05-13 03:56] LABS: Eosinophils % 0.1 %; Hemoglobin 10.4 g/dL (12.9-16.9); Immature Granulocytes % 1.7 % (0-4); Immature Platelets 16.9 % (1.1-6.1); Lymphocytes % 7.6 %; Mean Corpuscular HGB Conc 33.5 g/dL (31.6-35.5); Mean Corpuscular Hemoglobin 29.4 pg (28.0-33.3); Mean Corpuscular Volume 87.6 fL (83.0-100.0); Mean Platelet Volume 12.6 fL (9.4-12.4); Monocytes # 0.5 K/mcL (0.0-1.3); Nucleated Red Blood Cells 0.2 /100 WBC (0); Red Blood Count 3.54 M/mcL (4.19-5.50); Red Cell Distribution Width 14.3 % (11.5-14.5); Segmented Neutrophils % 86.6 %
[2017-05-13 04:05] LABS: Neutrophils # 11.9 K/mcL (1.6-8.9); Platelet Count 74 K/mcL (140-400)
[2017-05-13] MEDS: Nicotine 21 MG PATCH.TD24 TD SCH (08:42)
[2017-05-13] MEDS: *HR* HYDROcodone/Acet 5/325 mg TABLET PO PRN (08:43)
[2017-05-13] MEDS: FLUoxetine 20 MG CAPSULE PO SCH (08:43)
[2017-05-13] MEDS: MethylPREDNISolone 40 MG/ML VIAL IVP SCH (08:52)
[2017-05-13 11:10] VITALS: BP 137/95
[2017-05-13 11:32] LABS: Cancer Antigen-GI (CA 19-9) 20 U/mL (0-37)
--- NOTE | 2017-05-13 14:20 | Discharge Summary ---
Date of Encounter: 05/13/17 Time of Encounter: 14:17 - Discharge Diagnosis (1) Acute ITP Priority: Primary Status: Suspected (2) Severe thrombocytopenia Priority: Primary Status: Acute (3) Lower extremity edema Priority: Primary Status: Acute (4) Tobacco abuse Priority: Secondary Status: Chronic (5) Bipolar disorder Priority: Secondary Status: Chronic Qualifiers: Active/Remission status: remission status unspecified Qualified Code(s): F31.9 - Bipolar disorder, unspecified - Discharge Medications Prescriptions: HYDROcodone/Acet 5/325 mg [[place] 5-325 mg] 1 tab PO Q6H PRN #20 tablet PRN Reason: Pain Omeprazole 20 mg PO DAILY #30 tablet. predniSONE [PredniSONE] 80 mg PO DAILY 5 Days tablet Home Medications: Carvedilol [Coreg] 6.25 mg PO BID 05/10/17 [History] FLUoxetine HCl [Prozac] 20 mg PO DAILY 05/10/17 [History] HYDROcodone/Acet 5/325 mg [[place] 5-325 mg] 1 tab PO Q6H PRN #20 tablet 05/13/17 [Rx] Omeprazole 20 mg PO DAILY #30 tablet. 05/13/17 [Rx] predniSONE [PredniSONE] 80 mg PO DAILY 5 Days tablet 05/13/17 [Rx] Allergies/Adverse Reactions: 3 Allergy/AdvReac Type Severity Reaction Status Date / Time No Known Allergies Allergy Verified 01/16/17 12:06 Procedures/tests Complete & Pending: Procedures Performed prior 72 hours Category Date Time Status CT abdomen wo no iv no oral [CT] Stat Cat Scan 05/10/17 21:[address] chest wo con [CT] Stat Cat Scan 05/10/17 21:44 Completed Date of admission: 05/10/17 21:41 Primary care physician: Ru Ye MD Consults: 05/10/17 21:49 Consult to Oncology [CONS] Routine Consulting Provider: [facility] Reason for Consult: Severe thrombocytopenia Call Completed: Yes Discharging clinician: Leena Mejia Anticipated date of discharge: 05/13/17 - Patient Status Disposition: Home, Self-Care Condition: Good Functional capacity at discharge: independent ambulation Overall status at discharge: patient is progressing back to baseline - Discharge Instructions Instructions: Hydrocodone/Acetaminophen (By mouth), How to Stop Smoking (DC), Thrombocytopenic Purpura (DC), Chronic Hypertension (DC), Thrombocytopenia (DC) Follow Up With: Carol Chaves MD [Partnered Physician] - [facility] [place],Ru Weiss MD [Primary Care Provider] - (Please call the office on Monday to schedule a follow up visit for within 1 week. ) Additional Instructions: F/up with [facility] in 1 week - Diet and Activity Activity: increase activity as tolerated Diet: low fat, low cholesterol, low salt diet Hospital course: Mr. Andre is a 37 year old male with history of tobacco abuse and hypertension and bipolar disorder, was admitted with right leg swelling and painful purpuric rash. Venous Doppler of right lower extremity revealed no DVT. He was noted to have strong peripheral pulses. Routine labs showed severe thrombocytopenia with platelet count less than 2000 with associated anemia. This is thought to be acute to subacute in onset as patient's previous labs from 4 months earlier when noted to be within normal limits. Serum iron profile, vitamin B12 and folate levels are within normal limits. Patient was started on IV steroids as suspicion for immune thrombocytopenic purpura is high at this time. He also received 1 unit of pooled platelets. Patient's platelet count steadily improved and it is noted to be 74,000 today. He also has mild leukocytosis, which is likely due to platelet transfusion. Patient was evaluated by hematology, who agreed with current management and recommended 5 days of oral steroids as an outpatient and to follow up with hematology as outpatient. Peripheral smear showed low platelets. Further labs are pending; Patient is medically stable for discharge. - Time Spent with Patient Total time spent providing and/or coordinating discharge services: Greater than 30 minutes (40 min) - Constitutional Vitals: Temp Pulse Resp BP Pulse Ox 98.3 F 86 17 137/95 94 05/13/17 11:09 05/13/17 11:09 05/13/17 11:09 05/13/17 11:09 05/13/17 11:09 General appearance: Present: A&O X 3, obese, answers questions appropriately - Extremities Exam Extremities exam: Present: pedal edema (improving right pedal edema; improved petechial rash), warm, radial pulses palpable and symmetrical. Absent: calf tenderness, cyanotic - VTE Documentation of Mechanical Device: Intermittent pneumatic compression device
--- NOTE | 2017-05-15 08:34 | Electrocardiograph Report ---
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
== END 2017-05-13 15:37 | disposition home or self-care (01) | DRG 661 ==
LOC: 3BNU 17:22 → EMEROO 17:22 → SUATTDRO 21:41 → 3BNU 22:15
PROVIDERS: ADMIT Internal Medicine; ATTEND Internal Medicine

== ENCOUNTER 2017-05-19 20:14 | Inpatient (IN) ==
--- NOTE | 2017-05-19 20:38 | Emergency Department Note ---
Disposition Clinical Impression: Thrombocytopenia, History of ITP Disposition: Admitted As Inpatient Condition: Fair Time of Disposition: 21:19 Recheck wound or abnormal lab - General Chief Complaint: ED Recheck/Abnormal Lab/Rx Stated Complaint: PCP sent for transfusion Time Seen by Provider: 05/19/17 20:22 Source: patient Mode of arrival: ambulatory Limitations: no limitations Nursing Notes Reviewed: Yes Vital Signs Reviewed: Yes - History of Present Illness HPI Narrative: 37-year-old male with history of ITP currently seeing hematology at [facility] arrives to [facility] emergency department with concern for low platelets. Lab tests performed were earlier today revealed a platelet count of less than 2. The patient was instructed to come into the emergency department that time. The patient does state that he has had this in the past and actually had a transfusion roughly 1 week ago for similar complaint. The patient states he at the time he did have a rash but he states the rash went away at this time. The patient does have a small lesion is inside of his mouth. Patient denies any other complaints at this time is resting comfortably. The patient is asymptomatic. The patient has documented a pulse in the 130s but in the room he was sitting and the low 90s. Patient resting comfortably at this time. Patient denies any bleeding at this time. No black or bloody stools, no hemoptysis, no bleeding gums. Pt Subjective Complaint: abnormal lab(s) Symptoms Since Prior Visit: no new symptoms Associated symptoms: none - Related Data Home Medications Medication Instructions Recorded Confirmed Carvedilol [Coreg] 6.25 mg PO BID 05/10/17 05/19/17 FLUoxetine HCl [Prozac] 20 mg PO DAILY 05/10/17 05/19/17 PredniSONE [Deltasone] See Taper PO AD 05/19/17 05/19/17 Previous Rx's Medication Instructions Recorded HYDROcodone/Acet 5/325 mg [[place] 1 tab PO Q6H PRN #20 tablet 05/13/17 5-325 mg] Omeprazole 20 mg PO DAILY #30 tablet. 05/13/17 Allergies Allergy/AdvReac Type Severity Reaction Status Date / Time No Known Allergies Allergy Verified 05/19/17 20:21 All systems ED: reviewed and negative except as stated. Constitutional: Denies: fever, chills, weakness, weight change Past Medical History - Past Medical History Attestation: Yes The following information was validated with the patient. Source: patient Medical history: Reports: hypertension, other (ITP) Psychiatric history: Reports: bipolar, depression, prior suicide attempt, previous psychiatric hospitalization - Social History Smoking Status: Current every day smoker Smokeless Tobacco Status: No Alcohol use: Reports: occasionally Drug use: Reports: cocaine Physical Exam - General Limitations: no limitations General appearance: alert, in no apparent distress Course - Consultations Consultation #1: Spoke with Dr. Elder in Hematology who requested one dose of 1 mg/kg IVIG as well as a 40 mg dose of dexamethasone. He requested CBCs every 8 hours. The patient will be seen by hematology this evening. He requested admission at this time. We will perform these orders and admit the patient to the hospitalist. Time: 20:57 Vital Signs Temperature 98.3 F 05/19/17 20:19 Pulse Rate 134 05/19/17 20:19 Respiratory Rate 16 05/19/17 20:19 Blood Pressure 171/111 05/19/17 20:19 O2 Sat by Pulse Oximetry 97 05/19/17 20:19 Temperature 98.6 F 05/19/17 22:32 Pulse Rate 86 05/19/17 22:32 Respiratory Rate 14 05/19/17 22:32 Blood Pressure 137/96 05/19/17 22:32 O2 Sat by Pulse Oximetry 96 05/19/17 22:32 Oxygen Delivery Oxygen Delivery Room Air Recheck wound or abnormal lab - MDM Narrative Medical decision making narrative: Patient has no symptoms of bleeding or any other complaints at this time. We will admit the patient to the hospitalist service per recommendation from hematology/oncology after receiving a bolus of 1 g/kg IVIG as was a 40 mg dose of dexamethasone. Oncology requested a CBC every 8 hours. The patient was accepted by the hospitalist, Dr. Saba. He agrees to plan. - Medical Records Medical records reviewed: Yes I reviewed the patient's medical records. - Lab Data Lab results reviewed: Yes I reviewed the patient's lab results. Result diagrams: 05/19/17 20:40 05/19/17 20:40 Lab Results 05/19/17 05/19/17 05/19/17 Range/Units 20:40 20:40 20:40 WBC 12.7 H (4.3-11.1) K/mcL RBC 4.13 L (4.19-5.50) M/mcL Hgb 12.2 L (12.9-16.9) g/dL Hct 37.1 L (37.5-50.1) % MCV 89.8 (83.0-100.0) fL MCH 29.5 (28.0-33.3) pg MCHC 32.9 (31.6-35.5) g/dL RDW 14.2 (11.5-14.5) % Plt Count < 2 L* (140-400) K/mcL MPV TNP Immature Gran % 0.6 (0-4) % Seg Neutrophils % 65.1 % Lymphocytes % 26.7 % Monocytes % 6.4 % Eosinophils % 1.0 % Basophils % 0.2 % Neutrophils # 8.3 (1.6-8.9) K/mcL Lymphocytes # 3.4 (0.6-4.6) K/mcL Monocytes # 0.8 (0.0-1.3) K/mcL Eosinophils # 0.1 (0.0-0.6) K/mcL Basophils # 0.0 (0.0-0.2) K/mcL Nucleated RBCs/100 WBC 0.2 H (0) /100 WBC Immature Plt Fraction 21.5 H (1.1-6.1) % Sodium 137 (136-145) mEq/L Potassium 3.6 (3.5-4.5) mEq/L Chloride 101 (98-109) mEq/L Carbon Dioxide 25 (19-29) mEq/L BUN 20 (8-26) mg/dL Creatinine 1.01 (0.72-1.25) mg/dL Est GFR ( Amer) > 60 (> 60) Est GFR (Non-Af Amer) > 60 (> 60) BUN/Creatinine Ratio 20 (6-26) Glucose 171 H (70-99) mg/dL Calculated Osmolality 291 (280-300) Calcium 8.9 (8.6-10.8) mg/dL Blood Type O NEGATIVE Antibody Screen NEGATIVE Attestation Statement - Attestation Attestation: I, Owen Flowers MD, personally evaluated this patient and discussed their management with the resident physician. I reviewed the resident's note and agree with the documented findings, medical decision making, and plan of care. 37-year-old male presents to the emergency department with complaint of low platelets. Patient was just admitted to the hospital 9 days ago for thrombocytopenia. Platelet count at that time was less than 2. No prior history. He presented with some swelling and petechiae at that time. He was seen today by hematology for follow-up and had labs obtained. Platelets again dropped down to less than 2. He was advised to come here to receive platelets and be admitted. He has no complaints at this time. No abnormal bruising or bleeding or swelling. On examination patient is a well-developed well-nourished male in no acute distress. He is alert and oriented 3. There is no cyanosis or diaphoresis. Breath sounds are clear and equal bilaterally. Heart regular rate and rhythm. Abdomen soft and nontender with normal bowel sounds. Skin is warm and dry with good color. Labs reviewed. Dr. Burch consulted the electrical maintenance worker manager of construction, Dr. Bran, and he recommended giving the patient IVIG 1 g/kg and Decadron 40 mg. The hospitalist , Dr. Saba, was consulted and accepted admission of the patient.
[2017-05-19] MEDS ORDERED: Dexamethasone 4 MG/ML VIAL IVP ONE (20:42)
[2017-05-19] MEDS ORDERED: IVIG (wt based) 5 GM/50 ML INFUS..BTL IVC ONE (20:43)
[2017-05-19] MEDS ORDERED: IMMUNE GLOBULIN IVC ONE ×6 (21:00→21:15)
[2017-05-19 21:28] LABS: Basophils % 0.2 %; Immature Granulocytes % 0.6 % (0-4); Monocytes % 6.4 %; Nucleated Red Blood Cells 0.2 /100 WBC (0)
[2017-05-19 21:29] LABS: Eosinophils # 0.1 K/mcL (0.0-0.6); Hematocrit 37.1 % (37.5-50.1); Hemoglobin 12.2 g/dL (12.9-16.9); Immature Platelets 21.5 % (1.1-6.1); Lymphocytes # 3.4 K/mcL (0.6-4.6); Lymphocytes % 26.7 %; Mean Corpuscular HGB Conc 32.9 g/dL (31.6-35.5); Mean Corpuscular Hemoglobin 29.5 pg (28.0-33.3); Mean Corpuscular Volume 89.8 fL (83.0-100.0); Monocytes # 0.8 K/mcL (0.0-1.3); Neutrophils # 8.3 K/mcL (1.6-8.9); Red Blood Count 4.13 M/mcL (4.19-5.50); Red Cell Distribution Width 14.2 % (11.5-14.5); Segmented Neutrophils % 65.1 %
[2017-05-19 21:34] LABS: BUN/Creatinine Ratio 20 (6-26); Blood Urea Nitrogen 20 mg/dL (8-26); Calcium 8.9 mg/dL (8.6-10.8); Carbon Dioxide 25 mEq/L (19-29); Chloride 101 mEq/L (98-109); Glucose 171 mg/dL (70-99); Osmolality,Calculated 291 (280-300); Platelet Count < 2 K/mcL (140-400); Potassium 3.6 mEq/L (3.5-4.5); Sodium 137 mEq/L (136-145); eGFR For African Americans > 60 (> 60); eGFR For Non-African Americans > 60 (> 60)
[2017-05-19] MEDS ORDERED: Ondansetron 4 MG/2 ML VIAL IVP PRN (22:50)
[2017-05-19] MEDS ORDERED: Acetaminophen 325 MG TABLET PO PRN (22:50)
[2017-05-19] MEDS ORDERED: Naloxone 0.4 MG/ML INJ IVP PRN (22:50)
--- NOTE | 2017-05-19 22:54 | Internal Med History&Physical ---
Date of Encounter: 05/19/17 Time of Encounter: 23:00 Assessment and Plan (1) Acute ITP Current visit: Yes Status: Acute Recently diagnosed ITP - with severe thrombocytopenia - probable lymphoproliferative disorder Continue IVIG, IV Dexamethasone given in ED, PO Dexamethasone daily Transfuse platelets if patient develops any bleeding Oncology consult - discussed with Dr. Bran Cardiac telemetry, repeat labs in a.m., monitor closely (2) Severe thrombocytopenia Current visit: No Status: Acute Secondary to ITP Plan as above (3) Pancreatic mass Current visit: No Status: Chronic Asymptomatic, follows up with oncology as outpatient (4) Bipolar disorder Current visit: No Status: Chronic Bipolar disorder with depression, stable Continue home dose of Prozac Qualifiers: Active/Remission status: remission status unspecified Qualified Code(s): F31.9 - Bipolar disorder, unspecified (5) Hypertension Current visit: No Status: Chronic Essential hypertension, controlled, monitor Continue home dose of Coreg Qualifiers: Hypertension type: essential hypertension Qualified Code(s): I10 - Essential (primary) hypertension (6) Tobacco abuse Current visit: No Status: Chronic Counseled about cessation, nicotine patch Internal Medicine - H&P: HPI Chief complaint: Low platelets Admitted From: Emergency Dept Plans for Post Hospital Care: Home History of present illness: Mr. Andre is a 37 year old male with past medical history of hypertension, bipolar disorder, depression and recently diagnosed ITP. Patient presents to the ED for low platelet count. Examined in the room. Patient is awake and alert. Not in any distress. Able to provide all history. No family members at bedside. Patient was evaluated earlier today by Dr. Chaves as outpatient. He had labs drawn, and his platelet count was found to be less than 2000. Patient has been on prednisone at home for ITP. He was also transfused platelets during his stay recently and his platelet count improved to 74,000. Patient denies any bleeding. Denies chest pain or shortness of breath. He has no symptoms at this time. Patient is also found to have a small pancreatic mass recently and workup was negative. Patient has no other complaints at this time. Initial workup in the ED today reveals severe Miguel [place]ngel cytopenia, but is otherwise negative. Oncology has evaluated the patient. He has received IVIG and also IV dexamethasone today. We will hold off on platelet transfusion for now. If patient develops any bleeding he will require platelet transfusion. Patient was explained about the serious risk of bleeding even with minimal trauma. Patient understood and agreed. CODE STATUS full code. Past Med Surg Social Fam HX - Past Medical History Medical history: hypertension, other (ITP) Psychiatric history: bipolar, depression, prior suicide attempt, previous psychiatric hospitalization - Past Surgical History Surgical History: other (Surgery were both feet, history of subdural hematoma evacuation 20 years ago) - Social History Smoking Status: Current every day smoker Packs per day: 1 Smokeless Tobacco Status: No Alcohol use: occasionally Drug use: cocaine - Family History Mother Family Member Ethnicity: Non- Living Status: Still Living Hx Family Cardiac Disorders: Yes (stents) Father Family Member Ethnicity: Non- Living Status: Still Living Hx Family Cardiac Disorders: Yes (stents placed) Internal Medicine - H&P: Meds Carvedilol [Coreg] 6.25 mg PO BID 05/10/17 [History] FLUoxetine HCl [Prozac] 20 mg PO DAILY 05/10/17 [History] HYDROcodone/Acet 5/325 mg [[place] 5-325 mg] 1 tab PO Q6H PRN #20 tablet 05/13/17 [Rx] Omeprazole 20 mg PO DAILY #30 tablet. 05/13/17 [Rx] PredniSONE [Deltasone] See Taper PO AD 05/19/17 [History] 3 Allergy/AdvReac Type Severity Reaction Status Date / Time No Known Allergies Allergy Verified 05/19/17 20:21 All Systems PM: A 10-system review of systems was performed and is negative for pertinent findings except as documented above in the HPI. - Constitutional Constitutional: no fatigue, no fever(s), no weakness - EENT Eyes: no blurry vision - Cardiovascular Cardiovascular ROS IM: no chest pain, no diaphoresis, no dyspnea, no dyspnea on exertion, no lightheadedness, no orthopnea, no syncope - Respiratory Respiratory: no cough, no dyspnea, no dyspnea on exertion, no wheezing, no chest congestion - Gastrointestinal Gastrointestinal: no abdominal pain, no belching, no bloating, no diarrhea, no hematemesis, no hematochezia, no nausea, no vomiting - Genitourinary Genitourinary ROS male: no dysuria - Neurological Neurological ROS: no abnormal gait, no confusion, no convulsions, no disequilibrium, no dizziness, no focal weakness, no loss of vision, no numbness , no tingling - Constitutional Vitals: Temp Pulse Resp BP Pulse Ox 98.6 F 86 14 137/96 96 05/19/17 22:32 05/19/17 22:32 05/19/17 22:32 05/19/17 22:32 05/19/17 22:32 General appearance: Present: cooperative, A&O X 3, pleasant, no acute distress, answers questions appropriately - Head Head exam: Present: atraumatic - Eye Eye exam: Present: EOMI - ENT ENT exam: Present: mucous membranes moist - Respiratory Respiratory exam: Present: CTAB. Absent: chest wall tenderness, rales, rhonchi , wheezes, tachypnea - Cardiovascular Cardiovascular exam: Present: RRR, +S1, +S2 - GI/Abdominal GI/Abdominal exam: Present: soft. Absent: distended, firm, guarding, tenderness - Extremities Exam Extremities exam: Present: radial pulses palpable and symmetrical. Absent: calf tenderness, cyanotic, pedal edema - Neurological Exam Neurological exam: Present: alert, oriented X3, no focal deficits. Absent: facial droop, speech deficit Internal Med - H&P Results - Labs CBC & Chem 7: 05/19/17 20:40 05/19/17 20:40
[2017-05-20] MEDS: Nicotine 21 MG PATCH.TD24 TD SCH ×2 (00:05→07:56)
[2017-05-20 03:54] LABS: Eosinophils % 0.3 %; Hemoglobin 11.1 g/dL (12.9-16.9); Lymphocytes % 11.1 %
[2017-05-20 03:56] LABS: Basophils % 0.3 %; Hematocrit 33.5 % (37.5-50.1); Immature Granulocytes % 1.7 % (0-4); Lymphocytes # 0.8 K/mcL (0.6-4.6); Mean Corpuscular HGB Conc 33.1 g/dL (31.6-35.5); Mean Corpuscular Hemoglobin 29.8 pg (28.0-33.3); Mean Corpuscular Volume 90.1 fL (83.0-100.0); Monocytes # 0.1 K/mcL (0.0-1.3); Monocytes % 1.9 %; Neutrophils # 5.8 K/mcL (1.6-8.9); Red Blood Count 3.72 M/mcL (4.19-5.50); Red Cell Distribution Width 13.8 % (11.5-14.5); Segmented Neutrophils % 84.7 %
[2017-05-20 04:00] LABS: INR 0.9; Platelet Count 5 K/mcL (140-400)
[2017-05-20 04:09] LABS: BUN/Creatinine Ratio 18 (6-26); Blood Urea Nitrogen 19 mg/dL (8-26); Calcium 8.4 mg/dL (8.6-10.8); Carbon Dioxide 27 mEq/L (19-29); Chloride 97 mEq/L (98-109); Glucose 375 mg/dL (70-99); Osmolality,Calculated 286 (280-300); Potassium 4.4 mEq/L (3.5-4.5); eGFR For African Americans > 60 (> 60); eGFR For Non-African Americans > 60 (> 60)
[2017-05-20 04:11] LABS: Sodium 129 mEq/L (136-145)
[2017-05-20 04:31] LABS: Thyroid Stimulating Hormone 0.301 mcIU/mL (0.350-4.840)
[2017-05-20] MEDS: Famotidine 20 MG/2 ML VIAL IVP SCH ×2 (05:29→16:47)
[2017-05-20] MEDS: FLUoxetine 20 MG CAPSULE PO SCH (07:55)
[2017-05-20] MEDS: *HR* HYDROcodone/Acet 5/325 mg TABLET PO PRN ×2 (07:55→20:58)
[2017-05-20] MEDS ORDERED: Dexamethasone 10 MG/ML VIAL PO SCH (09:00)
[2017-05-20 11:47] LABS: Basophils % 0.1 %; Hemoglobin 11.2 g/dL (12.9-16.9)
[2017-05-20 11:49] LABS: Hematocrit 32.2 % (37.5-50.1); Immature Platelets 23.7 % (1.1-6.1); Lymphocytes # 0.7 K/mcL (0.6-4.6); Lymphocytes % 6.3 %; Mean Corpuscular HGB Conc 34.8 g/dL (31.6-35.5); Mean Corpuscular Hemoglobin 30.2 pg (28.0-33.3); Mean Corpuscular Volume 86.8 fL (83.0-100.0); Mean Platelet Volume 13.9 fL (9.4-12.4); Monocytes # 0.1 K/mcL (0.0-1.3); Monocytes % 0.8 %; Neutrophils # 9.7 K/mcL (1.6-8.9); Nucleated Red Blood Cells 0.2 /100 WBC (0); Red Blood Count 3.71 M/mcL (4.19-5.50); Red Cell Distribution Width 13.5 % (11.5-14.5); Segmented Neutrophils % 91.8 %
[2017-05-20 11:51] LABS: Platelet Count 16 K/mcL (140-400)
--- NOTE | 2017-05-20 16:23 | Internal Med Progress Note ---
Date of Encounter: 05/20/17 Time of Encounter: 10:00 - Assessment and plan (1) Acute ITP Current Visit: Yes Status: Acute Assessment and plan: -Oncology was consulted in the ER with recommendations IVIG and IV dexamethasone. -IV Ig was given as a one-time dose but IV dexamethasone has been continued. -Patients platelets have improved but are still low; patient with no active bleeding. -Continue IV dexamethasone and appreciate any further recommendations from oncology. (2) Severe thrombocytopenia Current Visit: No Status: Acute Assessment and plan: -Secondary to the above. (3) Hypertension Current Visit: No Status: Chronic Assessment and plan: -Patient with elevated blood pressures without prior diagnosis of hypertension. -Continue to monitor. Qualifiers: Hypertension type: unspecified Qualified Code(s): I10 - Essential (primary ) hypertension (4) Mood disorder Current Visit: Yes Status: Acute Assessment and plan: -Stable; continue home medications. (5) Tobacco abuse Current Visit: No Status: Chronic Assessment and plan: -Nicotine replacement will be offered. - Subjective Interval history: Patient with no issues or complaints this morning and no acute events overnight. - Constitutional Vitals: Temp Pulse Resp BP Pulse Ox 98.4 F 105 14 170/97 96 05/20/17 14:55 05/20/17 14:55 05/20/17 14:55 05/20/17 14:55 05/20/17 14:55 General appearance: Present: cooperative, A&O X 3, pleasant, no acute distress, answers questions appropriately - Respiratory Respiratory exam: Present: CTAB. Absent: accessory muscle use, rales, rhonchi, wheezes - Cardiovascular Cardiovascular exam: Present: RRR, +S1, +S2. Absent: diastolic murmur, gallop, rubs, systolic murmur Internal Medicine: Result - Labs CBC & Chem 7: 05/20/17 11:38 05/20/17 03:30 Labs: Short CBC 05/20/17 05/20/17 Range/Units 03:30 11:38 WBC 6.9 10.6 D (4.3-11.1) K/mcL Hgb 11.1 L 11.2 L (12.9-16.9) g/dL Hct 33.5 L 32.2 L (37.5-50.1) % Plt Count 5 L* D 16 L* D (140-400) K/mcL Neutrophils # 5.8 9.7 H (1.6-8.9) K/mcL BMP 05/20/17 03:30 Sodium 129 L D Potassium 4.4 Chloride 97 L Carbon Dioxide 27 BUN 19 Creatinine 1.07 Glucose 375 H Calcium 8.4 L - ABG Interpretation ABG results: PT/INR, D-dimer PT 10.0 Seconds (9.4-12.1) 05/20/17 03:30 Consult Discharge Plan - Plan Referrals: Ru Ye MD [Primary Care Provider] -
[2017-05-20 20:01] LABS: Basophils % 0.1 %; Hematocrit 33.4 % (37.5-50.1); Hemoglobin 11.3 g/dL (12.9-16.9); Immature Granulocytes % 1.5 % (0-4); Immature Platelets 14.9 % (1.1-6.1); Lymphocytes # 0.7 K/mcL (0.6-4.6); Lymphocytes % 4.9 %; Mean Corpuscular HGB Conc 33.8 g/dL (31.6-35.5); Mean Corpuscular Hemoglobin 29.5 pg (28.0-33.3); Mean Corpuscular Volume 87.2 fL (83.0-100.0); Mean Platelet Volume 12.3 fL (9.4-12.4); Monocytes # 0.3 K/mcL (0.0-1.3); Monocytes % 1.9 %; Neutrophils # 12.3 K/mcL (1.6-8.9); Red Blood Count 3.83 M/mcL (4.19-5.50); Red Cell Distribution Width 13.5 % (11.5-14.5); Segmented Neutrophils % 91.6 %
[2017-05-20 20:11] LABS: Platelet Count 44 K/mcL (140-400)
[2017-05-21] MEDS: Famotidine 20 MG/2 ML VIAL IVP SCH (05:29)
[2017-05-21] MEDS: FLUoxetine 20 MG CAPSULE PO SCH (08:13)
[2017-05-21] MEDS: Nicotine 21 MG PATCH.TD24 TD SCH (08:13)
[2017-05-21] MEDS ORDERED: Dexamethasone 10 MG/ML VIAL IVP SCH (09:00)
[2017-05-21 09:40] LABS: Basophils % 0.1 %; Hematocrit 33.9 % (37.5-50.1); Hemoglobin 11.5 g/dL (12.9-16.9); Immature Granulocytes % 1.9 % (0-4); Immature Platelets 10.7 % (1.1-6.1); Lymphocytes # 0.8 K/mcL (0.6-4.6); Lymphocytes % 5.2 %; Mean Corpuscular HGB Conc 33.9 g/dL (31.6-35.5); Mean Corpuscular Volume 88.5 fL (83.0-100.0); Mean Platelet Volume 11.2 fL (9.4-12.4); Monocytes # 0.5 K/mcL (0.0-1.3); Neutrophils # 14.4 K/mcL (1.6-8.9); Nucleated Red Blood Cells 0.2 /100 WBC (0); Red Blood Count 3.83 M/mcL (4.19-5.50); Red Cell Distribution Width 13.9 % (11.5-14.5); Segmented Neutrophils % 89.8 %
[2017-05-21 09:42] LABS: Platelet Count 97 K/mcL (140-400)
[2017-05-21 09:53] LABS: BUN/Creatinine Ratio 16 (6-26); Blood Urea Nitrogen 17 mg/dL (8-26); Calcium 8.8 mg/dL (8.6-10.8); Carbon Dioxide 22 mEq/L (19-29); Chloride 99 mEq/L (98-109); Glucose 408 mg/dL (70-99); Osmolality,Calculated 291 (280-300); Potassium 4.6 mEq/L (3.5-4.5); Sodium 131 mEq/L (136-145); eGFR For African Americans > 60 (> 60); eGFR For Non-African Americans > 60 (> 60)
[2017-05-21 11:56] LABS: Hemoglobin A1C 6.2 %
[2017-05-21 16:21] VITALS: BP 165/101
--- NOTE | 2017-05-21 16:48 | Discharge Summary ---
Date of Encounter: 05/21/17 Time of Encounter: 11:00 - Discharge Diagnosis (1) Acute ITP Priority: Primary Status: Acute (2) Severe thrombocytopenia Priority: Primary Status: Acute (3) Hypertension Priority: Secondary Status: Chronic Qualifiers: Hypertension type: unspecified Qualified Code(s): I10 - Essential (primary ) hypertension (4) Mood disorder Priority: Secondary Status: Acute (5) Tobacco abuse Priority: Secondary Status: Chronic - Discharge Medications Prescriptions: PredniSONE [Deltasone] 20 mg PO DAILY #21 tablet Home Medications: Carvedilol [Coreg] 6.25 mg PO BID 05/10/17 [History] FLUoxetine HCl [Prozac] 20 mg PO DAILY 05/10/17 [History] HYDROcodone/Acet 5/325 mg [[place] 5-325 mg] 1 tab PO Q6H PRN #20 tablet 05/13/17 [Rx] Omeprazole 20 mg PO DAILY #30 tablet. 05/13/17 [Rx] PredniSONE [Deltasone] 20 mg PO DAILY #21 tablet 05/21/17 [Rx] Allergies/Adverse Reactions: 3 Allergy/AdvReac Type Severity Reaction Status Date / Time No Known Allergies Allergy Verified 05/19/17 20:21 Date of admission: 05/19/17 22:50 Primary care physician: Ru Ye MD Consults: 05/19/17 22:53 Consult to Oncology [CONS] Routine Consulting Provider: On[facility] Reason for Consult: ITP Call Completed: Yes - Patient Status Disposition: Home, Self-Care Condition: Fair - Discharge Instructions Follow Up With: Ru Ye MD [Primary Care Provider] - Hospital course: Patient is a 37 year old male with past medical history significant for hypertension, bipolar disorder, depression and recently diagnosed ITP who presented to the ER on 05/19/17 for low platelet count. Patient was evaluated earlier the day of admission by Dr. Chaves as outpatient. He had labs drawn, and his platelet count was found to be less than 2000. Patient has been on prednisone at home for ITP. He was also transfused platelets during his stay recently and his platelet count improved to 74,000. Patient denies any bleeding. In the ER, patient was found to have severe thrombocytopenia. Patient was admitted to the medical floor for further treatment of severe thrombocytopenia secondary to ITP. Oncologys consulted with recommendations to give a one-time dose of IVIG in addition to daily IV dexamethasone. As result, patients platelets did improve. In discussion with oncologist, she suspects that patient had been noncompliant with prednisone therapy. Educated the patient in the importance of being compliant with prednisone therapy for the treatment of ITP and the risk of noncompliance. Per oncology recommendations, patient will be discharge to take prednisone 60 mg daily until seen by oncologist. - Time Spent with Patient Total time spent providing and/or coordinating discharge services: Less than 30 minutes - Constitutional Vitals: Temp Pulse Resp BP Pulse Ox 98.0 F 101 14 165/101 94 05/21/17 16:14 05/21/17 16:14 05/21/17 16:14 05/21/17 16:14 05/21/17 16:14 General appearance: Present: cooperative, A&O X 3, pleasant, no acute distress, answers questions appropriately - Respiratory Respiratory exam: Present: CTAB. Absent: accessory muscle use, rales, rhonchi, wheezes - Cardiovascular Cardiovascular exam: Present: RRR, +S1, +S2. Absent: diastolic murmur, gallop, rubs, systolic murmur
== END 2017-05-21 17:38 | disposition home or self-care (01) | DRG 661 ==
LOC: EMEROO 20:14 → 3ANU 20:14
PROVIDERS: ADMIT Family Medicine; ATTEND Hospitalist

== ENCOUNTER 2019-10-01 10:15 | Inpatient (IN) ==
[~2019-10-01 10:15] MED LIST: *HR* Heparin 10,000 UNIT/10 ML VIAL IV ONE; *HR* Magnesium Sulfate 2 GM/50 ML PIGGYBACK IVPB ONE; *HR* Phenylephrine 10 MG/ML VIAL IVC ONE; Albumin Human 25% 25 GM/100 ML IV.SOLN IV ONE; Dextrose 50 % in Water (Vial) 30 ML, Sodium Bicarbonate 20 MEQ, Lidocaine 1% 5 ML, Insu... TH ONE; Dextrose 50 % in Water (Vial) 30 ML, Sodium Bicarbonate 20 MEQ, Potassium Chloride 15 M... TH ONE; Heparin 15,000 UNIT in 0.9 % Sodium Chloride 500 ML IV ONE; Insulin Human Regular 100 UNIT in 0.9 % Sodium Chloride 100 ML IV PRN; Lidocaine 2% Syringe 100 MG/5 ML IV ONE; Mannitol 25% vial 12.5 GM/50 ML VIAL IVP ONE; Norepinephrine 4 MG in 0.9 % Sodium Chloride 250 ML IVC PRN; Tranexamic Acid 1,000 MG/10 ML VIAL IVP ONE
[2019-10-01] MEDS ORDERED: CeFAZolin Syr 3,000MG/30 ML 3,000 MG/30 ML SYRINGE IVPB ONE (10:47)
[2019-10-01] MEDS ORDERED: Chlorhexidine Rinse 15 ML MOUTHWASH MM STA (10:49)
[2019-10-01] MEDS ORDERED: Albuterol 2.5 MG/3 ML NEBULIZER IH ONE (11:14)
[2019-10-01] MEDS ORDERED: Verapamil 5 MG/2 ML VIAL ONE (11:22)
[2019-10-01] MEDS: Ringers Solution, Lactated 1,000 ML IVC SCH (11:31)
[2019-10-01] MEDS ORDERED: *HR* Midazolam HCl 5 MG/5 ML VIAL IVP ONE ×2 (11:40→15:28)
[2019-10-01] MEDS ORDERED: *HR* Propofol 200 MG/20 ML VIAL IVP ONE (11:41)
[2019-10-01] MEDS ORDERED: *HR* FentaNYL (PF) 1,000 MCG/20 ML VIAL ONE (11:41)
[2019-10-01] MEDS ORDERED: *HR* PHENYLEPHRINE 1,000 MCG/10 ML SYRINGE IVP ONE (11:42)
[2019-10-01] MEDS ORDERED: Famotidine 20 MG/2 ML VIAL ONE (11:42)
[2019-10-01] MEDS ORDERED: *HR* Rocuronium Bromide 50 MG/5 ML VIAL ONE ×2 (11:42→13:20)
[2019-10-01] MEDS ORDERED: *HR* Magnesium Sulfate 1 GM/2 ML VIAL ONE (11:42)
[2019-10-01] MEDS ORDERED: Dexamethasone 4 MG/ML VIAL ONE (11:42)
[2019-10-01 12:32] LABS: ABG Base Excess 2 mEq/L (-2 to 3); ABG Chloride 103 mEq/L (98-107); ABG Glucose 172 mg/dL (60-95); ABG HCO3 29 mEq/L (21-27); ABG Ionized Calcium 1.25 mmol/L (1.15-1.35); ABG Oxygen Saturation 99 % (95-98); ABG PCO2 52 mmHg (35-45); ABG PH 7.35 pH Units (7.32-7.45); ABG PO2 166 mmHg (85-104); ABG TCO2 30 mEq/L (20-26)
[2019-10-01] MEDS ORDERED: Tranexamic Acid 1,000 MG/10 ML VIAL ONE (13:03)
[2019-10-01] MEDS ORDERED: *HR* FentaNYL (PF) 250 MCG/5 ML VIAL ONE (13:18)
[2019-10-01 13:48] LABS: ABG Base Excess 2 mEq/L (-2 to 3); ABG Chloride 104 mEq/L (98-107); ABG Glucose 159 mg/dL (60-95); ABG HCO3 28 mEq/L (21-27); ABG Oxygen Saturation 95 % (95-98); ABG PCO2 50 mmHg (35-45); ABG PH 7.36 pH Units (7.32-7.45); ABG PO2 78 mmHg (85-104); ABG TCO2 30 mEq/L (20-26)
[2019-10-01] MEDS ORDERED: Calcium Gluconate 1,000 MG/10 ML VIAL ONE (14:09)
[2019-10-01] MEDS ORDERED: Protamine Sulfate 250 MG/25 ML VIAL IVP ONE (14:09)
[2019-10-01 14:28] LABS: ABG Base Excess 3 mEq/L (-2 to 3); ABG Chloride 99 mEq/L (98-107); ABG Glucose 223 mg/dL (60-95); ABG HCO3 29 mEq/L (21-27); ABG Ionized Calcium 1.04 mmol/L (1.15-1.35); ABG Oxygen Saturation 100 % (95-98); ABG PCO2 48 mmHg (35-45); ABG PH 7.38 pH Units (7.32-7.45); ABG PO2 564 mmHg (85-104); ABG TCO2 30 mEq/L (20-26)
[2019-10-01 14:53] LABS: ABG Base Excess 4 mEq/L (-2 to 3); ABG Chloride 99 mEq/L (98-107); ABG Glucose 215 mg/dL (60-95); ABG HCO3 28 mEq/L (21-27); ABG Ionized Calcium 1.03 mmol/L (1.15-1.35); ABG Oxygen Saturation 100 % (95-98); ABG PCO2 42 mmHg (35-45); ABG PH 7.44 pH Units (7.32-7.45); ABG PO2 529 mmHg (85-104); ABG TCO2 30 mEq/L (20-26)
[2019-10-01 15:30] LABS: ABG Base Excess 4 mEq/L (-2 to 3); ABG Chloride 101 mEq/L (98-107); ABG Glucose 196 mg/dL (60-95); ABG HCO3 29 mEq/L (21-27); ABG Ionized Calcium 1.09 mmol/L (1.15-1.35); ABG Oxygen Saturation 100 % (95-98); ABG PCO2 48 mmHg (35-45); ABG PH 7.39 pH Units (7.32-7.45); ABG PO2 395 mmHg (85-104); ABG TCO2 31 mEq/L (20-26)
[2019-10-01 16:14] LABS: ABG Base Excess 1 mEq/L (-2 to 3); ABG Chloride 104 mEq/L (98-107); ABG Glucose 165 mg/dL (60-95); ABG HCO3 27 mEq/L (21-27); ABG Ionized Calcium 1.27 mmol/L (1.15-1.35); ABG Oxygen Saturation 100 % (95-98); ABG PCO2 52 mmHg (35-45); ABG PH 7.33 pH Units (7.32-7.45); ABG PO2 216 mmHg (85-104); ABG TCO2 29 mEq/L (20-26)
[2019-10-01] MEDS ORDERED: Insulin Regular, Human 100 UNIT/ML IV PRN (16:46)
[2019-10-01] MEDS ORDERED: Ondansetron 4 MG/2 ML VIAL IVP PRN (16:46)
[2019-10-01] MEDS ORDERED: *HR* Dextrose 50 % in Water (Syg) 50 ML SYRINGE IVP PRN (16:46)
[2019-10-01] MEDS ORDERED: Naloxone 0.4 MG/ML INJ IVP PRN (16:46)
[2019-10-01] MEDS ORDERED: Acetaminophen 325 MG TABLET PO PRN (16:46)
[2019-10-01] MEDS ORDERED: *HR* Promethazine 25 MG/ML VIAL IVP PRN (16:46)
[2019-10-01] MEDS ORDERED: Potassium Chloride 40 MEQ/200 ML BAG IVPB PRN (16:46)
[2019-10-01] MEDS ORDERED: *HR* LORazepam 2 MG/ML VIAL IVP PRN (16:56)
[2019-10-01] MEDS ORDERED: Insulin Human Regular 100 UNIT in 0.9 % Sodium Chloride 100 ML IVC SCH (17:00)
[2019-10-01] MEDS ORDERED: niCARdipine 20 MG in 0.9 % Sodium Chloride 192 ML IVC SCH (17:00)
[2019-10-01] MEDS ORDERED: carvediloL 25 MG TABLET PO SCH (17:00)
[2019-10-01] MEDS ORDERED: Norepinephrine 4 MG in 0.9 % Sodium Chloride 250 ML IVC SCH (17:00)
[2019-10-01 17:07] LABS: ABG Base Excess 1 mEq/L (-2 to 3); ABG HCO3 28 mEq/L (21-27); ABG Oxygen Saturation 95 % (95-98); ABG PCO2 54 mmHg (35-45); ABG PH 7.32 pH Units (7.32-7.45); ABG PO2 80 mmHg (85-104); ABG TCO2 30 mEq/L (20-26); Blood Gas VT 550 cc
[2019-10-01 17:17] LABS: Basophils % 0.3 %; Eosinophils % 0.8 %; Lymphocytes % 11.2 %; Mean Platelet Volume 9.9 fL (9.4-12.4); Platelet Count 258 K/mcL (140-400); Red Cell Distribution Width 13.2 % (11.5-14.5)
[2019-10-01 17:18] LABS: Basophils # 0.1 K/mcL (0.0-0.2); Eosinophils # 0.2 K/mcL (0.0-0.6); Hematocrit 36.1 % (37.5-50.1); Hemoglobin 12.1 g/dL (12.9-16.9); Immature Granulocytes % 0.6 % (0-4); Lymphocytes # 3.1 K/mcL (0.6-4.6); Mean Corpuscular HGB Conc 33.5 g/dL (31.6-35.5); Mean Corpuscular Hemoglobin 29.8 pg (28.0-33.3); Mean Corpuscular Volume 88.9 fL (83.0-100.0); Monocytes % 7.3 %; Neutrophils # 22.3 K/mcL (1.6-8.9); Red Blood Count 4.06 M/mcL (4.19-5.50); Segmented Neutrophils % 79.8 %; White Blood Count 27.9 K/mcL (4.3-11.1)
[2019-10-01] MEDS: Dexmedetomidine HCl 400 MCG/100 ML MLS IVC SCH ×2 (17:21→21:35)
[2019-10-01 17:25] LABS: INR 1.1; Prothrombin Time 12.8 Seconds (9.4-12.1)
[2019-10-01] MEDS: *HR* FentaNYL (PF) 100 MCG/2 ML VIAL IVP PRN ×4 (17:27→20:33)
[2019-10-01 17:28] LABS: Activated Partial Thrombo Time 29.4 Seconds (26.0-36.0)
[2019-10-01 17:32] LABS: BUN/Creatinine Ratio 11 (6-26); Blood Urea Nitrogen 9 mg/dL (6-20); Calcium 8.6 mg/dL (8.6-10.3); Carbon Dioxide 27 mEq/L (23-29); Chloride 106 mEq/L (98-107); Glucose 149 mg/dL (70-105); Magnesium 2.5 mg/dL (1.6-2.6); Osmolality,Calculated 289 (280-300); Sodium 139 mEq/L (136-145); eGFR For African Americans > 60 (> 60); eGFR For Non-African Americans > 60 (> 60)
[2019-10-01] MEDS: 0.9 % Sodium Chloride 1,000 ML IVC SCH (17:34)
[2019-10-01 18:05] LABS: Platelet Estimate Normal (Normal)
[2019-10-01] MEDS: Chlorhexidine Rinse 15 ML MOUTHWASH MM SCH (19:35)
[2019-10-01] MEDS: ceFAZolin 3,000 MG in 0.9 % Sodium Chloride 100 ML IVPB SCH ×2 (19:35→23:09)
[2019-10-01 20:20] LABS: ABG Base Excess -1 mEq/L (-2 to 3); ABG HCO3 27 mEq/L (21-27); ABG Oxygen Saturation 96 % (95-98); ABG PCO2 55 mmHg (35-45); ABG PO2 89 mmHg (85-104); ABG TCO2 29 mEq/L (20-26); Blood Gas Modality ASSIST CONTROL; Blood Gas VT 550 cc
[2019-10-01 21:30] LABS: ABG Base Excess 2 mEq/L (-2 to 3); ABG HCO3 28 mEq/L (21-27); ABG Oxygen Saturation 90 % (95-98); ABG PCO2 48 mmHg (35-45); ABG PH 7.38 pH Units (7.32-7.45); ABG PO2 61 mmHg (85-104); ABG TCO2 30 mEq/L (20-26); Blood Gas Modality CPAP/PS; Blood Gas Pressure Support 5 cm H2O
[2019-10-01 23:16] LABS: ABG Base Excess 3 mEq/L (-2 to 3); ABG HCO3 29 mEq/L (21-27); ABG Oxygen Saturation 89 % (95-98); ABG PCO2 48 mmHg (35-45); ABG PH 7.39 pH Units (7.32-7.45); ABG PO2 57 mmHg (85-104); ABG TCO2 30 mEq/L (20-26)
[2019-10-02] MEDS ORDERED: CeFAZolin Syr 3,000MG/30 ML 3,000 MG/30 ML SYRINGE IVPB SCH
[2019-10-02] MEDS: *HR* OxyCODONE/APAP 5/325 TABLET PO PRN ×7 (01:08→23:28)
[2019-10-02] MEDS: *HR* FentaNYL (PF) 100 MCG/2 ML VIAL IVP PRN ×2 (03:37→06:05)
[2019-10-02 04:10] LABS: Basophils % 0.2 %; Hematocrit 36.1 % (37.5-50.1); Hemoglobin 12.3 g/dL (12.9-16.9); Immature Granulocytes % 0.4 % (0-4); Lymphocytes % 10.3 %; Mean Corpuscular HGB Conc 34.1 g/dL (31.6-35.5); Mean Corpuscular Hemoglobin 29.9 pg (28.0-33.3); Mean Corpuscular Volume 87.8 fL (83.0-100.0); Mean Platelet Volume 9.6 fL (9.4-12.4); Monocytes # 1.7 K/mcL (0.0-1.3); Monocytes % 8.9 %; Neutrophils # 15.7 K/mcL (1.6-8.9); Platelet Count 263 K/mcL (140-400); Red Blood Count 4.11 M/mcL (4.19-5.50); Red Cell Distribution Width 13.2 % (11.5-14.5); Segmented Neutrophils % 80.2 %; White Blood Count 19.5 K/mcL (4.3-11.1)
[2019-10-02 04:33] LABS: BUN/Creatinine Ratio 13 (6-26); Blood Urea Nitrogen 11 mg/dL (6-20); Calcium 8.7 mg/dL (8.6-10.3); Carbon Dioxide 26 mEq/L (23-29); Chloride 102 mEq/L (98-107); Glucose 154 mg/dL (70-105); Osmolality,Calculated 286 (280-300); Potassium 4.1 mEq/L (3.5-5.1); Sodium 137 mEq/L (136-145); eGFR For African Americans > 60 (> 60); eGFR For Non-African Americans > 60 (> 60)
[2019-10-02] MEDS ORDERED: Pantoprazole 40 MG VIAL IVP SCH (09:00)
[2019-10-02] MEDS ORDERED: Aspirin 81 MG TAB.CHEW PO SCH (09:00)
[2019-10-02] MEDS: Chlorhexidine Rinse 15 ML MOUTHWASH MM SCH ×2 (09:04→20:05)
[2019-10-02] MEDS: 0.9 % Sodium Chloride 1,000 ML IVC SCH (11:37)
[2019-10-02] MEDS: Ringers Solution, Lactated 1,000 ML IVC SCH (11:38)
[2019-10-02] MEDS ORDERED: Naloxone 0.4 MG/ML INJ IVP PRN (16:22)
[2019-10-02] MEDS ORDERED: D5% in Water 1,000 ML IVC PRN (16:22)
[2019-10-02] MEDS ORDERED: Dextrose Gel 15 GM/37.5 ML TUBE PO PRN ×2 (16:22)
[2019-10-02] MEDS ORDERED: Ondansetron 4 MG/2 ML VIAL IVP PRN (16:22)
[2019-10-02] MEDS ORDERED: *HR* Promethazine 25 MG/ML VIAL IVP PRN (16:22)
[2019-10-02] MEDS ORDERED: *HR* LORazepam 2 MG/ML VIAL IVP PRN (16:22)
[2019-10-02] MEDS ORDERED: *HR* Dextrose 50 % in Water (Syg) 50 ML SYRINGE IVP PRN (16:22)
[2019-10-02] MEDS: *HR* Heparin 5,000 UNIT/ML VIAL SQ SCH (17:29)
[2019-10-02] MEDS: Insulin LISPRO 300 UNITS/3 ML VIAL SQ SCH ×3 (17:32→20:05)
[2019-10-02] MEDS: Ketorolac 15 MG/ML VIAL IVP PRN (18:24)
[2019-10-03 01:43] LABS: Basophils % 0.2 %; Eosinophils % 0.2 %; Hematocrit 35.2 % (37.5-50.1); Hemoglobin 11.9 g/dL (12.9-16.9); Immature Granulocytes % 0.5 % (0-4); Lymphocytes # 5.3 K/mcL (0.6-4.6); Lymphocytes % 27.1 %; Mean Corpuscular HGB Conc 33.8 g/dL (31.6-35.5); Mean Corpuscular Hemoglobin 29.2 pg (28.0-33.3); Mean Corpuscular Volume 86.3 fL (83.0-100.0); Mean Platelet Volume 10.1 fL (9.4-12.4); Monocytes # 2.4 K/mcL (0.0-1.3); Monocytes % 12.2 %; Neutrophils # 11.8 K/mcL (1.6-8.9); Platelet Count 282 K/mcL (140-400); Red Blood Count 4.08 M/mcL (4.19-5.50); Red Cell Distribution Width 13.3 % (11.5-14.5); Segmented Neutrophils % 59.8 %; White Blood Count 19.7 K/mcL (4.3-11.1)
[2019-10-03 02:01] LABS: BUN/Creatinine Ratio 16 (6-26); Blood Urea Nitrogen 16 mg/dL (6-20); Calcium 8.8 mg/dL (8.6-10.3); Carbon Dioxide 30 mEq/L (23-29); Chloride 98 mEq/L (98-107); Glucose 143 mg/dL (70-105); Osmolality,Calculated 284 (280-300); Potassium 4.3 mEq/L (3.5-5.1); Sodium 135 mEq/L (136-145); eGFR For African Americans > 60 (> 60); eGFR For Non-African Americans > 60 (> 60)
[2019-10-03] MEDS: *HR* OxyCODONE/APAP 5/325 TABLET PO PRN (03:32)
[2019-10-03] MEDS: Ketorolac 15 MG/ML VIAL IVP PRN (03:43)
[2019-10-03] MEDS: *HR* Heparin 5,000 UNIT/ML VIAL SQ SCH ×2 (05:12→16:45)
[2019-10-03] MEDS: *HR* HYDROmorphone 2 MG/ML SYRINGE IVP PRN ×2 (05:13→20:14)
[2019-10-03] MEDS: Insulin LISPRO 300 UNITS/3 ML VIAL SQ SCH ×4 (08:56→23:13)
[2019-10-03] MEDS: Aspirin 81 MG TAB.CHEW PO SCH (08:58)
[2019-10-03] MEDS: Chlorhexidine Rinse 15 ML MOUTHWASH MM SCH ×2 (08:58→20:15)
[2019-10-03] MEDS: Ketorolac 15 MG/ML VIAL IVP SCH ×3 (08:58→20:11)
[2019-10-03] MEDS: *HR* OxyCODONE/APAP 10/325 TABLET PO PRN ×2 (08:59→15:08)
[2019-10-03] MEDS: carvediloL 25 MG TABLET PO SCH ×2 (08:59→16:45)
[2019-10-03] MEDS: Pantoprazole 40 MG VIAL IVP SCH (09:03)
[2019-10-03] MEDS ORDERED: Furosemide 20 MG/2 ML VIAL IVP ONE (13:43)
[2019-10-04] MEDS: *HR* OxyCODONE/APAP 10/325 TABLET PO PRN ×5 (00:23→21:43)
[2019-10-04] MEDS: Ketorolac 15 MG/ML VIAL IVP SCH ×4 (01:29→18:20)
[2019-10-04 01:31] LABS: Basophils # 0.1 K/mcL (0.0-0.2); Basophils % 0.3 %; Eosinophils # 0.3 K/mcL (0.0-0.6); Hematocrit 31.9 % (37.5-50.1); Immature Granulocytes % 0.3 % (0-4); Lymphocytes # 4.6 K/mcL (0.6-4.6); Mean Corpuscular HGB Conc 34.5 g/dL (31.6-35.5); Mean Corpuscular Hemoglobin 29.3 pg (28.0-33.3); Mean Corpuscular Volume 85.1 fL (83.0-100.0); Mean Platelet Volume 10.3 fL (9.4-12.4); Monocytes # 1.8 K/mcL (0.0-1.3); Monocytes % 12.5 %; Neutrophils # 7.6 K/mcL (1.6-8.9); Platelet Count 278 K/mcL (140-400); Red Blood Count 3.75 M/mcL (4.19-5.50); Red Cell Distribution Width 13.2 % (11.5-14.5); Segmented Neutrophils % 52.9 %; White Blood Count 14.3 K/mcL (4.3-11.1)
[2019-10-04 01:58] LABS: BUN/Creatinine Ratio 23 (6-26); Blood Urea Nitrogen 22 mg/dL (6-20); Calcium 8.8 mg/dL (8.6-10.3); Carbon Dioxide 27 mEq/L (23-29); Chloride 99 mEq/L (98-107); Glucose 151 mg/dL (70-105); Osmolality,Calculated 284 (280-300); Potassium 3.7 mEq/L (3.5-5.1); Sodium 134 mEq/L (136-145); eGFR For African Americans > 60 (> 60); eGFR For Non-African Americans > 60 (> 60)
[2019-10-04] MEDS: *HR* Heparin 5,000 UNIT/ML VIAL SQ SCH ×2 (04:55→17:03)
[2019-10-04] MEDS: carvediloL 25 MG TABLET PO SCH ×2 (07:24→17:05)
[2019-10-04] MEDS: Chlorhexidine Rinse 15 ML MOUTHWASH MM SCH ×2 (07:24→20:28)
[2019-10-04] MEDS: Aspirin 81 MG TAB.CHEW PO SCH (07:24)
[2019-10-04] MEDS: Pantoprazole 40 MG VIAL IVP SCH (07:26)
[2019-10-04] MEDS: Insulin LISPRO 300 UNITS/3 ML VIAL SQ SCH ×4 (09:12→21:00)
[2019-10-04] MEDS: Acetaminophen 325 MG TABLET PO PRN ×2 (12:25→18:28)
[2019-10-05] MEDS: Ketorolac 15 MG/ML VIAL IVP SCH ×4 (00:10→17:51)
[2019-10-05] MEDS: Acetaminophen 325 MG TABLET PO PRN (03:25)
[2019-10-05] MEDS: *HR* Heparin 5,000 UNIT/ML VIAL SQ SCH ×2 (06:37→17:55)
[2019-10-05] MEDS: Aspirin 81 MG TAB.CHEW PO SCH (08:37)
[2019-10-05] MEDS: Insulin LISPRO 300 UNITS/3 ML VIAL SQ SCH ×4 (08:37→21:04)
[2019-10-05] MEDS: carvediloL 25 MG TABLET PO SCH ×2 (08:37→17:50)
[2019-10-05] MEDS: *HR* OxyCODONE/APAP 10/325 TABLET PO PRN ×3 (08:37→21:04)
[2019-10-05] MEDS: Chlorhexidine Rinse 15 ML MOUTHWASH MM SCH ×2 (08:37→21:04)
[2019-10-05] MEDS: Pantoprazole 40 MG VIAL IVP SCH (08:38)
[2019-10-06] MEDS: Ketorolac 15 MG/ML VIAL IVP SCH ×4 (00:23→19:45)
[2019-10-06] MEDS: *HR* Heparin 5,000 UNIT/ML VIAL SQ SCH ×2 (06:34→19:45)
[2019-10-06] MEDS: Chlorhexidine Rinse 15 ML MOUTHWASH MM SCH ×2 (07:55→20:54)
[2019-10-06] MEDS: carvediloL 25 MG TABLET PO SCH ×2 (07:55→16:31)
[2019-10-06] MEDS: Aspirin 81 MG TAB.CHEW PO SCH (07:55)
[2019-10-06] MEDS: Pantoprazole 40 MG VIAL IVP SCH (07:56)
[2019-10-06] MEDS: Insulin LISPRO 300 UNITS/3 ML VIAL SQ SCH ×4 (07:57→20:42)
[2019-10-06] MEDS: *HR* OxyCODONE/APAP 10/325 TABLET PO PRN ×3 (08:00→20:54)
[2019-10-07] MEDS: Ketorolac 15 MG/ML VIAL IVP SCH ×2 (00:14→06:17)
[2019-10-07] MEDS: *HR* Heparin 5,000 UNIT/ML VIAL SQ SCH (06:17)
[2019-10-07] MEDS: Aspirin 81 MG TAB.CHEW PO SCH (08:10)
[2019-10-07] MEDS: carvediloL 25 MG TABLET PO SCH (08:10)
[2019-10-07] MEDS: Chlorhexidine Rinse 15 ML MOUTHWASH MM SCH (08:10)
[2019-10-07] MEDS: Pantoprazole 40 MG VIAL IVP SCH (08:11)
[2019-10-07 08:31] VITALS: BP 132/86
[2019-10-07] MEDS: *HR* OxyCODONE/APAP 10/325 TABLET PO PRN (10:53)
== END 2019-10-07 11:24 | disposition home or self-care (01) | DRG 166 ==
LOC: SAMDAY 10:15 → ICNU 12:00 → 2NNU 10-02 15:18
PROVIDERS: ADMIT Thoracic Surgery (Cardiothoracic Vascular Surgery); ATTEND Thoracic Surgery (Cardiothoracic Vascular Surgery)